=== PATIENT | female | born 1945 | race African-American/Black ===

== ENCOUNTER 2017-12-06 08:18 | Inpatient (IN) | payer OTHER ==
[2017-12-06] VITALS (8 sets, daily range): BP systolic 79–212; BP diastolic 37–92
[~2017-12-06] VITALS: Ht 172.7 cm; Wt 135.0 kg
--- NOTE | 2017-12-06 08:33 | NUR ---
PT FAMILY AT THE BEDSIDE BRIEFLY PRIOR TO DR. STEPHENS INTUBATING PT.
[2017-12-06] MEDS ORDERED: TRAMADOL 50 MG50 MG PO (08:34)
[2017-12-06] MEDS ORDERED: DEMADEX20 MG PO (08:34)
[2017-12-06] MEDS ORDERED: NORVASC5 MG PO (08:34)
[2017-12-06] MEDS ORDERED: LOTENSIN20 MG PO (08:35)
[2017-12-06] MEDS ORDERED: SINGULAIR 10 MG10 M1 PO (08:35)
[2017-12-06] MEDS ORDERED: ZANAFLEX4 MG PO (08:36)
[2017-12-06] MEDS ORDERED: LEVOTHYROXINE100 MC1 PO (08:37)
[2017-12-06 08:41] LABS: ABSOLUTE EOSINOPHILS 0.1 thou/uL (0.0-0.7); ABSOLUTE LYMPHOCYTES 1.6 thou/uL (0.8-5.3); ABSOLUTE NEUTROPHILS 10.5 thou/uL (1.6-8.1); BASOPHILS 0.3 %; EOSINOPHILS 0.9 %; HEMATOCRIT 39.2 % (37.0-47.0); HEMOGLOBIN 12.6 gm/dL (12.0-15.0); LYMPHOCYTES 12.3 %; MCHC 32.1 g/dL (28.0-37.0); MONOCYTES 7.7 %; MPV 10.2 fl. (7.2-11.1); NUCLEATED RBCS 0 /100WBC; PLATELET COUNT* 145 thou/uL (150-400); POLYS 78.8 %; RBC 4.84 mil/uL (4.20-5.00); RDW-CV 18.8 % (10.5-14.5); WBC 13.4 thou/uL (4.0-11.0)
[2017-12-06 08:45] LABS: BE -3.8 mmol/L (-2 to +3); HCO3 22.8 mmol/L (22.0-26.0); PCO2 47.1 mmHg (35.0-45.0); PO2 74.2 mmHg (75.0-100.0); pH 7.302 (7.340-7.450)
[2017-12-06 08:54] LABS: ANION GAP 11 mmol/L (7-16); BUN 26 mg/dL (7-18); CALCIUM 9.6 mg/dL (8.5-10.1); CHLORIDE 101 mmol/L (98-107); CO2 27 mmol/L (21-32); CREATININE 1.7 mg/dL (0.6-1.3); GLUCOSE 140 mg/dL (70-99); POTASSIUM 4.3 mmol/L (3.5-5.1); SODIUM 139 mmol/L (136-145)
[2017-12-06 08:55] LABS: APTT 28.5 Seconds (25.0-31.3); INR 1.2; PROTIME 11.2 Seconds (9.20-11.50)
[2017-12-06 09:04] LABS: ALBUMIN 3.9 g/dL (3.4-5.0); ALKALINE PHOSPHATASE 124 U/L (46-116); NT-PRO BRAIN NAT PEPTIDE 3824 pg/mL (<300); SGOT 32 U/L (15-37); SGPT 35 U/L (30-65); TOTAL PROTEIN 8.7 g/dL (6.4-8.2); TROPONIN-I LEVEL <0.06 ng/mL (<0.06)
[2017-12-06 10:27] LABS: INFLUENZA A ANTIGEN None Detected (None Detect); INFLUENZA B ANTIGEN None Detected (None Detect)
--- NOTE | 2017-12-06 10:35 | NUR ---
FAMILY GIVEN UPDATE BY DR. STEPHENS. FAMILY AT BEDSIDE.
--- NOTE | 2017-12-06 14:46 | EKG ---
[place] [address] ELECTROCARDIOGRAM REPORT Name: LUIS M CORRIGANLANDON Jorge Room: [address] ADM IN .R.#: [id number] Admission: 12/06/17 Attend Phys: Isabel Garcias MD Discharge: Date of : 49 Report #: [id number] THIS REPORT FOR: //name// [facility] ED Test Date: 2017-12-06 Test Time: 08:26:41 Pat Name: EVELINE CORRIGAN Department: Room: [facility] Gender: F Float Remover: Enio TIMMONS : 1945 Requested By: Rafat Riley Order Number: [id number] MD: Bakari Chaidez Measurements Intervals [place] Rate: 163 P: FL: QRS: 42 QRSD: 82 T: 145 QT: 257 QTc: 424 Interpretive Statements Atrial fibrillation with rapid V-rate Low voltage, precordial leads Abnormal R-wave progression, late transition Repolarization abnormality, prob rate related No previous ECG available for comparison Electronically Signed On 12-06-2017 14:46:45 CDT by Bakari Chaidez [email or web address] <ELECTRONICALLY SIGNED> By: Bakari Chaidez MD, FACC 12/06/17 1446 0826 0826 Bakari Chaidez MD, [facility] /EPI
--- NOTE | 2017-12-06 14:48 | EKG ---
[place] [address] ELECTROCARDIOGRAM REPORT Name: EVELINE CORRIGAN Room: [address] ADM IN M.R.#: [id number] Admission: 12/06/17 Attend Phys: Isabel Garcias MD Discharge: Date of : 49 Report #: [id number] THIS REPORT FOR: //name// [facility] ED Test Date: 2017-12-06 Test Time: 09:32:33 Pat Name: EVELINE CORRIGAN Department: Room: [address] Gender: F Care Management Associate: Enio TIMMONS : 1945 Requested By: Isabel Garcias Order Number: [id number] Susi MD: Bakari Chaidez Measurements Intervals [place] Rate: 121 P: [place]: QRS: 28 QRSD: 77 T: 94 QT: 311 QTc: 442 Interpretive Statements Atrial fibrillation Anteroseptal infarct, age indeterminate, possible Baseline wander in lead(s) V3 No previous ECG available for comparison Electronically Signed On 12-06-2017 14:48:11 CDT by Bakari Chaidez [email or web address] <ELECTRONICALLY SIGNED> By: Bakari Chaidez MD, [facility] 12/06/17 1448 0932 0932 Bakari Chaidez MD, [facility] /EPI
[2017-12-07] VITALS (23 sets, daily range): BP systolic 75–131; BP diastolic 23–75
[2017-12-07 05:27] LABS: HEMATOCRIT 34.7 % (37.0-47.0); HEMOGLOBIN 11.1 gm/dL (12.0-15.0); MCH 26.6 pg (26.0-34.0); MCHC 31.9 g/dL (28.0-37.0); MCV 83.3 fL (80.0-100.0); MPV 10.5 fl. (7.2-11.1); RBC 4.16 mil/uL (4.20-5.00); RDW-CV 18.7 % (10.5-14.5); WBC 10.6 thou/uL (4.0-11.0)
[2017-12-07 05:35] LABS: CALCIUM 8.4 mg/dL (8.5-10.1); CREATININE 1.4 mg/dL (0.6-1.3); POTASSIUM 4.1 mmol/L (3.5-5.1)
--- NOTE | 2017-12-07 06:30 | NUR ---
PATIENT PROGRESSING TOWARDS GOALS. RR, O2, BP WNL. IN CONTROLLED ATRIAL FLUTTER. VERSED GTT TITRATING DOWN. RESPONSIVE TO PAIN. SPOKE WITH FAMILY LAST NIGHT AND THIS MORNING. THEY ARE UP TO DATE ON CURRENT CARE OF PLAN NO FURTHER VOICED QUESTIONS. PT RECIEVED FULL BED BATH WITH LINEN CHANGE, TOLERATED WELL. SECRETIONS ARE DARK, THICK, MODERATE SIZE. Q2H ORAL CARE GIVEN. Q2H TURNS, HOB 30%. PT HAD A LOW GRADE FEVER OVER NIGHT. CURRENTLY 98.7. NO ABNORMAL LABS THIS A.M. URINE OUTPUT ADEQUATE. CHEST XRAY SHOWS IMPROVEMENT. WILL CONTINUE TO MONITOR CLOSELY.
[2017-12-07 08:41] LABS: ALBUMIN 3.1 g/dL (3.4-5.0); DIRECT BILIRUBIN 0.8 mg/dL (<0.1-0.3); TOTAL BILIRUBIN 1.7 mg/dL (<0.1-1.0); TOTAL PROTEIN 6.9 g/dL (6.4-8.2)
--- NOTE | 2017-12-07 11:00 | NUR ---
PT ADMITTED YESTERDAY, INTUBATED IN E.D. AND REMAINS ON VENT TODAY. SPOKE WITH DTR AT BEDSIDE. PT LIVES AT HOME WITH HER , PT'S GRANDSON ALSO LIVES THERE. PT NORMALLY IS FAIRLY ACTIVE AND INDEP PER DTR. PT HAS ASTHMA AND HAS HAD PNEUMONIA IN THE PAST, DTR SAID PT USUALLY WEARS A MASK WHEN SHE IS OUT IN PUBLIC. DISCUSSED ROLE OF CASE MGT. DTR HAS NO QUESTIONS ABOUT PLAN OF CARE, SHE SAID THE NURSES HAVE DONE AN VERY GOOD JOB OF KEEPING THEM INFORMED ON WHAT IS GOING ON.
--- NOTE | 2017-12-07 11:15 | CON ---
[address] [address] CONSULTATION Name: EVELINE CORRIGAN Jorge Room: [address] IN M.R.#: [id number] Admission: 12/06/17 Attend Phys: Isabel Garcias MD Discharge: Date of : 49 Report #: [id number] THIS REPORT FOR: //name// CC: Isabel James DATE OF SERVICE: 12/06/2017 REFERRING PHYSICIAN: Dr. Riley from the ER. HISTORY OF PRESENT ILLNESS: I was called to evaluate the patient in the ER, she is a 72-year-old female patient who was intubated on the vent at the time of my evaluation. She did not participate in the history, but reviewing medical record indicated that she has history of COPD and previous pneumonia. Reviewing the record indicated that she was short of breath for 2 days' duration and when the EMS arrived, she had her CPAP on her, but she was gasping for air and her O2 saturation was 68% and per the family, she had been short of breath for 2 days. She was brought into the ER and arrived on BiPAP. She was in significant respiratory distress and she ended up being intubated. Initially, they have difficulty ventilating the patient and required significant amount of sedation. Her PEEP initially was increased to 10, then sedation was increased and once she is more calm and quiet, her O2 saturation improved. HOME MEDICATIONS: Per the record. She is on torsemide, amlodipine, tramadol, benazepril, montelukast, Zanaflex and levothyroxine. ALLERGIES: Per the record, no known drug allergies. FAMILY HISTORY: Not obtainable due to the patient's condition. SOCIAL HISTORY: Unobtainable due to the patient's condition. However, there is a mention of history of COPD/asthma. PAST SURGICAL HISTORY: At this point, not obtainable. PAST MEDICAL HISTORY: Includes hypertension, hyperlipidemia, pneumonia, COPD/asthma. PHYSICAL EXAMINATION: VITAL SIGNS: She was on the vent, O2 saturation 100%, blood pressure around 96/53, pulse rate of 100. GENERAL: Obese lady, intubated on sedation. HEENT: Normocephalic, atraumatic. Pupils reactive to light. NECK: Supple. No palpable lymph node. No palpable thyroid. Trachea central. ORAL CAVITY: Moist mucous membrane with ET tube in place. CHEST: Diminished air movement bilaterally with prolonged [place] [address] CONSULTATION Name: EVELINE CORRIGAN Room: [address]#: [id number] Admission: 12/06/17 Attend Phys: Isabel Garcias MD Discharge: Date of : 49 Report #: [id number] crackles heard bilaterally with wheezes. HEART: S1, S2 irregular. ABDOMEN: Benign, soft, lax, nontender, obese. EXTREMITIES: Lower extremity, trace edema, no calf tenderness. Currently sedated, although it has been reported she had been moving the 4 extremities. PSYCHIATRIC: Mood and affect could not be evaluated. LYMPHATICS: No palpable lymph node. SKIN: Normal for age. No rash. LABORATORY DATA: Her chest x-ray in the ER showed bilateral consolidative infiltrate with cardiomegaly and vascular congestion. Her white blood count was elevated at 13.4, hemoglobin 12.6 and platelets of 145. ABGs prior to intubation 7.30/47/74, creatinine of 1.7, potassium 4.3, sodium 139. BNP was significantly elevated. IMPRESSION: 1. Acute hypoxic and hypercapnic respiratory failure. 2. Obstructive sleep apnea. 3. Pneumonia. 4. Bilateral pulmonary infiltrate. 5. Chronic obstructive pulmonary disease exacerbation. PLAN: The patient will be maintained on the vent. We will adjust the vent according to ABGs. We will do follow up ABGs and chest x-ray. It was noted she had some asynchrony with the vent with abdominal breathing. She would require more sedation. Consider benzodiazepine and fentanyl drip. She will be on steroids and antibiotics. Collect sputum for culture and sensitivity. She will be on scheduled nebulization treatments. We will wean her oxygen down. Once her chest x-ray clinically, she is better, then we will start the vent weaning process. Critical care time 35 minutes. <ELECTRONICALLY SIGNED> By: Deng Trivedi MD 12/07/17 1115 1144 [id number] Trivedi MD /nt
[2017-12-07 11:23] LABS: BE -1.3 mmol/L (-2 to +3); HCO3 24.2 mmol/L (22.0-26.0); PCO2 43.9 mmHg (35.0-45.0)
--- NOTE | 2017-12-07 13:10 | NUR ---
Pt blood pressure declined, levophed obtained from RX started at 10mcg. Page out to Dr. Trivedi, covering.
--- NOTE | 2017-12-07 13:41 | 2DMMODE ---
[place] [address] 2 D/M-MODE ECHOCARDIOGRAM Name: LUIS M CORRIGANLANDON Patel Room: [address] IN [facility]#: [id number] Admission: 12/06/17 Attend Phys: Isabel Garcias, Discharge: Date of : 49 Date of Service: 12/07/17 1340 Report #: [id number] THIS REPORT FOR: //name// APPROVED REPORT Study performed: 12/07/2017 10:30:19 EXAM: Comprehensive 2D, Doppler, and color-flow Echocardiogram Patient Location: In-Patient Room #: [facility] Status: routine BSA: 2.41 HR: 118 bpm BP: 104/65 mmHg Rhythm: Atrial Fibrillation Other Information Technically limited study due to body habitus, poor endocardial definition, inability to position patient. Indications Atrial Fibrillation PNEUMONIA RESP FAILURE 2D Dimensions LVEF(%): 61.88 (>50%) IVSd: 10.91 (7-11mm) LVOT Diam: 18.76 (18-24mm) LVDd: 29.18 mm PWd: 10.20 (7-11mm) Ascending Ao: 33.95 (22-36mm) LVDs: 19.84 (25-40mm) Aortic Root: 38.10 mm Burden's LVEF: 61.88 % Volumes Left Atrial Volume (Systole) LA ESV Index: 32.00 mL/m2 Aortic Valve AoV Peak Matthias.: 1.63 m/s AO Peak Gr.: 10.62 mmHg LVOT Max P.57 mmHg AO Mean Gr.: 6.46 mmHg LVOT Mean P.45 mmHg LVOT Max V: 0.80 m/s AO V2 VTI: 26.80 cm LVOT Mean V: 0.56 m/s VIOLET (VTI): 1.28 cm2 LVOT V1 VTI: 12.44 [place] [address] 2 D/M-MODE ECHOCARDIOGRAM Name: EVELINE CORRIGAN Jorge Room: [address] IN [facility].#: [id number] Admission: 12/06/17 Attend Phys: Isabel Garcias, Discharge: Date of : 49 Date of Service: 12/07/17 1340 Report #: [id number] AI Merrick: 6.62 m/s2 AI PHT: 104.56 ms Mitral Valve MV Mean Gr.: 11.89 mmHg Pulmonary Valve PV Peak Matthias.: 1.03 m/s PV Peak Gr.: 4.28 mmHg Tricuspid Valve TR Peak Gr.: 36.95 mmHg RVSP: 42.00 mmHg Left Ventricle The left ventricle is normal size. There is normal LV segmental wall motion. There is normal left ventricular wall thickness. Left ventricular systolic function is normal. The left ventricular ejection fraction is within the normal range. LVEF is 55-60%. This study is not technically sufficient to allow evaluation of the LV diastolic function due to atrial fibrillation. Right Ventricle The right ventricle is normal size. The right ventricular systolic function is normal. Atria The left atrium size is normal. The right atrium size is normal. Aortic Valve Mild aortic valve sclerosis. Mild aortic regurgitation. There is no aortic valvular stenosis. Mitral Valve Mild mitral annular calcification. Mild mitral regurgitation. Mild mitral stenosis. Tricuspid Valve The tricuspid valve is normal in structure. Mild tricuspid regurgitation. The RVSP is 40-45 mmHg. Pulmonic Valve The pulmonary valve is normal in structure. There is no pulmonic valvular regurgitation. Great Vessels The aortic root is normal in size. IVC is normal [place] [address] 2 D/M-MODE ECHOCARDIOGRAM Name: EVELINE CORRIGAN Room: [address] IN [facility]#: [id number] Admission: 12/06/17 Attend Phys: Isabel Garcias, Discharge: Date of : 49 Date of Service: 12/07/17 1340 Report #: [id number] collapses with >50% inspiration Pericardium There is no pericardial effusion. <Conclusion> The left ventricle is normal size. There is normal left ventricular wall thickness. Left ventricular systolic function is normal. The left ventricular ejection fraction is within the normal range. LVEF is 55-60%. This study is not technically sufficient to allow evaluation of the LV diastolic function due to atrial fibrillation. The right ventricle is normal size. The left atrium size is normal. Mild aortic valve sclerosis. Mild aortic regurgitation. There is no aortic valvular stenosis. Mild mitral annular calcification. Mild mitral regurgitation. Mild mitral stenosis. The tricuspid valve is normal in structure. Mild tricuspid regurgitation. The RVSP is 40-45 mmHg. IVC is normal in size and collapses with >50% inspiration There is no pericardial effusion. There is normal LV segmental wall motion. <ELECTRONICALLY SIGNED> By: Kirk Roldan MD, FACC 12/07/17 1340 1340 1340 Kirk Roldan MD, FACC /INF
--- NOTE | 2017-12-07 19:00 | NUR ---
PATIENT HAS SOMEWHAT PROGRESSED WELL TOWARDS GOALS TODAY. REMAINS ON VENT, WEANING TRIAL TOMORROW. NO APAPRENT PAIN. HAD TO START LEVO TODAY, INCREASED SEDATION TO HELP KEEP PATIENT COMFORTABLE ON THE VENT AND PRESSORS STARTED TO DROP. FAMILY UPDATED AND HAS BEEN IN THE ROOM MOST OF THE DAY. CENTTRAL LINE VERY POSITIONAL. LOTS OF SEDIMENT IN URINE. ABLE TO TITRATE SOME ON PRESSORS BUT UNABLE TO WEAN. ROLLING ATTENDANT IN PLACE, FALL PRECAUTIONS IN PLACE, BED IN LOWEST POSITION, WILL CONTINUE TO MONITOR.
[2017-12-08] VITALS (19 sets, daily range): BP systolic 100–136; BP diastolic 54–73
[2017-12-08 05:42] LABS: HEMATOCRIT 26.6 % (37.0-47.0); HEMOGLOBIN 10.9 gm/dL (12.0-15.0); MCH 45.5 pg (26.0-34.0); MPV 11.1 fl. (7.2-11.1); RBC 2.4 mil/uL (4.20-5.00); RDW-CV 21.4 % (10.5-14.5); WBC 11.5 thou/uL (4.0-11.0)
[2017-12-08 05:57] LABS: ALBUMIN 2.9 g/dL (3.4-5.0); CALCIUM 8.8 mg/dL (8.5-10.1); CREATININE 1.5 mg/dL (0.6-1.3); POTASSIUM 3.8 mmol/L (3.5-5.1); TOTAL PROTEIN 7.3 g/dL (6.4-8.2)
[2017-12-08 14:42] LABS: URINE BILIRUBIN NEGATIVE (Negative); URINE BLOOD 2+ (Negative); URINE CLARITY CLEAR; URINE COLOR YELLOW; URINE GLUCOSE-RANDOM NEGATIVE (Negative); URINE KETONES NEGATIVE (Negative); URINE LEUKOCYTES-REFLEX NEGATIVE (Negative); URINE NITRITE-REFLEX NEGATIVE (Negative); URINE PROTEIN 2+ (Negative); URINE SPECIFIC GRAVITY 1.025 (1.005-1.030); URINE UROBILINOGEN 0.2 E.U./dl (0.2-1.0)
[2017-12-08 14:44] LABS: SQUAMOUS 0-3 Few /LPF (0-3)
[2017-12-08 14:45] LABS: BACTERIA-REFLEX None Seen /HPF (None Seen); CASTS None Seen /LPF (None Seen); CRYSTALS None Seen /LPF (None Seen); URINE RBC 3-10 Few /HPF (0-2); URINE WBC-REFLEX None Seen /HPF (0-5)
--- NOTE | 2017-12-08 15:21 | EKG ---
[place] [address] ELECTROCARDIOGRAM REPORT Name: EVELINE CORRIGAN Room: [address] ADM IN M.R.#: [id number] Admission: 12/06/17 Attend Phys: Isabel Garcias MD Discharge: Date of : 49 Report #: [id number] THIS REPORT FOR: //name// [facility] Test Date: 2017-12-08 Test Time: 05:48:04 Pat Name: EVELINE CORRIGAN Department: Room: [address] Gender: F Tooth Polisher: RN : 1945 Requested By: Isabel Garcias Order Number: [id number] Reading MD: Kirk Roldan Measurements Intervals [place] Rate: 126 P: [place]: QRS: 39 QRSD: 95 T: 77 QT: 329 QTc: 477 Interpretive Statements Atrial fibrillation Borderline low voltage, extremity leads Compared to ECG 12/06/2017 09:32:33 Myocardial infarct finding no longer present Electronically Signed On 12-08-2017 15:21:42 CDT by Kirk Roldan [email or web address] <ELECTRONICALLY SIGNED> By: Kirk Roldan MD, [facility] 12/08/17 1521 0548 0548 Kirk Roldan MD, FAC /EPI
--- NOTE | 2017-12-08 15:37 | NUR ---
SEDATION VACATION INITIATED PER ORDERS FROM PULMONARY. PT TOLERATING. TRACING AFIB WITH HR 110-120. DILTIAZEM ORDERED FOR WHEN PT GOES INTO AFIB WITH RVR. HR <115. CARDIOLOGY NOTIFIED PT NOT ON GTT. LEVO TITRATED TO 4 MCG. WILL CONTINUE PLAN OF CARE.
--- NOTE | 2017-12-08 18:55 | NUR ---
PT TOLERATED SEDATION VACATION. PT BECAME RESTLESS. DID NOT OPEN EYES OR OBEY COMMANDS. HR STAYED IN LOW 100'S. CARDIZEM STARTED PER DR'S ORDERS.
[2017-12-09] VITALS (24 sets, daily range): BP systolic 86–116; BP diastolic 29–66
[2017-12-09 05:18] LABS: ALBUMIN 2.7 g/dL (3.4-5.0); CREATININE 1.3 mg/dL (0.6-1.3); MAGNESIUM 2.8 mg/dL (1.8-2.4); POTASSIUM 4.5 mmol/L (3.5-5.1); TOTAL BILIRUBIN 0.9 mg/dL (<0.1-1.0); TOTAL PROTEIN 6.3 g/dL (6.4-8.2)
--- NOTE | 2017-12-09 06:29 | NUR ---
PT REMAINS STABLE ON VENTILATOR, O2 SAT HAS REMAINED >95%. CARDIZEM GTT INFUSING ORDERED, HR HAS BEEN CONTROLLED 80'S-100'S. FENTANYL AND VERSED GTT'S TITRATED OFF AT 0600 IN PREPARATION FOR WEANING TRIAL AT 0800. PT TOLERATES TUBE FEEDING AT GOAL RATE OF 40ML/HR WITH 0-5ML RESIDUALS, WATER BOLUS 100ML Q4HR GIVEN ORDERED. COMPLETE BED BATH GIVEN. PT HAS BEEN TURNED Q2HR THROUGHOUT THE SHIFT.
[2017-12-09 09:33] LABS: HEMOGLOBIN 10.8 gm/dL (12.0-15.0); MPV 10.6 fl. (7.2-11.1); RDW-CV 41.7 % (10.5-14.5)
[2017-12-09 09:35] LABS: BE -1.4 mmol/L (-2 to +3); HCO3 23.7 mmol/L (22.0-26.0); PCO2 40.9 mmHg (35.0-45.0); PO2 92.3 mmHg (75.0-100.0)
[2017-12-09 09:40] LABS: HEMATOCRIT ND % (37.0-47.0); RBC ND mil/uL (4.20-5.00)
[2017-12-09 09:41] LABS: MCV ND fL (80.0-100.0)
[2017-12-09 09:43] LABS: MCH ND pg (26.0-34.0)
[2017-12-09 09:44] LABS: MCHC ND g/dL (28.0-37.0)
[2017-12-09 10:03] LABS: PLATELET COUNT* 117 thou/uL (150-400)
--- NOTE | 2017-12-09 11:00 | NUR ---
PT REMAINS ON VENT, ANOTHER WEANING TRIAL FOR TOMORROW. SPOKE WITH DTRS AT THE BEDSIDE, THEY HAD NO QUESTIONS ABOUT PLAN OF CARE. CASE MGT TO CONTINUE TO FOLLOW.
--- NOTE | 2017-12-09 19:30 | NUR ---
PT IS PROGRESSING TOWARDS GOALS. PT REMAINS OFF LEVOPHED AND VERSED GTTS.PT STARTED ON PO CARDIZEM THROUGH O/G. PT REMANS IN A FIB.FAMILY HAS BEEN HERE THROUGH SHIFT. PT TURNED THROUGH SHIFT.
[2017-12-10] VITALS (15 sets, daily range): BP systolic 11–129; BP diastolic 50–78
[2017-12-10 04:41] LABS: CALCIUM 9.5 mg/dL (8.5-10.1); CREATININE 1.5 mg/dL (0.6-1.3); POTASSIUM 4.3 mmol/L (3.5-5.1)
[2017-12-10 05:16] LABS: INR 1.2
[2017-12-10 06:11] LABS: WBC 31.7 thou/uL (4.0-11.0)
[2017-12-10 06:12] LABS: HEMATOCRIT ND % (37.0-47.0); HEMOGLOBIN 10.6 gm/dL (12.0-15.0)
[2017-12-10 06:13] LABS: MCH ND pg (26.0-34.0); MCHC ND g/dL (28.0-37.0); MCV ND fL (80.0-100.0); MPV ND fl. (7.2-11.1); PLATELET COUNT* 141 thou/uL (150-400); RDW-CV ND % (10.5-14.5)
[2017-12-10 06:14] LABS: RBC ND mil/uL (4.20-5.00)
--- NOTE | 2017-12-10 06:28 | NUR ---
PT REMAINS STABLE ON VENTILATOR. FENTANYL GTT TITRATED OFF AT 0600 IN PREPARATION FOR WEANING TRIAL SCHEDULED AT 0800. COLD ROLL INSPECTOR TRACING A-FIB WITH CONTROLLED RATE. VSS. O2 SAT HAS REMAINED >92%. COMPLETE BED BATH GIVEN. PT TOLERATING TF WITH 0ML RESIDUALS. PT HAS BEEN TURNED Q2HR THROUGHOUT THE SHIFT. DAUGHTER AT BEDSIDE LAST NOC, STATED SHE WOULD BE IN AT 0800 TO BRING PTS HOME CPAP MACHINE.
--- NOTE | 2017-12-10 18:13 | NUR ---
RECIEVED REPORT FROM NIGHT, RN. ASSESSMENTS CHARTED. STILL INTUBATED. OFF SEDATION SINCE 0600. UNABLE TO DO A TTT TODAY. AFEBRILE. BLOODY SECRETIONS NOTED TODAY AND PHYSICAN AWARE. AFIB. [place]DEQAUTE URINE OUTPUT. TUBE FEEDINGS INFUSING. LOVENOX D/C'D. HEPARIN GTT STARTED PER CARDILOGY. FAMILY UPDATED ON PLAN OF CARE.
[2017-12-11] VITALS (7 sets, daily range): BP systolic 116–136; BP diastolic 61–82
--- NOTE | 2017-12-11 04:53 | NUR ---
PT. SOMEWHAT PROGRESSING TOWARDS GOALS. PRN SEDATION OF FENTANYL GIVEN FOR RESTLESSNESS AND TACHYCARDIA. FENTANYL GTT REMAINS OFF. PT. DOES OPEN EYES TO STIMULI BUT DID NOT FOLLOW COMMANDS THIS SHIFT. TTT THIS A.M. ADEQUATE BLOOD PRESSURES THROUGHOUT SHIFT. LARGE BOWEL MOVEMENT. WILL CONTINUE TO MONITOR.
[2017-12-11 05:24] LABS: CALCIUM 9.1 mg/dL (8.5-10.1); CREATININE 1.7 mg/dL (0.6-1.3); MAGNESIUM 2.8 mg/dL (1.8-2.4); POTASSIUM 3.6 mmol/L (3.5-5.1)
[2017-12-11 05:48] LABS: HEMOGLOBIN 10.2 gm/dL (12.0-15.0); MPV 10.1 fl. (7.2-11.1); PLATELET COUNT* 118 thou/uL (150-400); RDW-CV 55.4 % (10.5-14.5)
[2017-12-11 05:50] LABS: WBC 7.4 thou/uL (4.0-11.0)
[2017-12-11 05:51] LABS: MCH ND pg (26.0-34.0)
[2017-12-11 05:52] LABS: MCHC ND g/dL (28.0-37.0); MCV ND fL (80.0-100.0)
[2017-12-11 05:55] LABS: RBC ND mil/uL (4.20-5.00)
[2017-12-11 05:56] LABS: HEMATOCRIT ND % (37.0-47.0)
--- NOTE | 2017-12-11 10:14 | NUR ---
DR DANIELSON REQUEST PT BE TRANSFER TO [facility] OR ACCEPTING FACILITY WITH NEUROSURGERY AVAILABLE. CALLED RADIOLOGY TO HAVE IMAGES PUT ON CLOUD. SPOKE TO [facility] TRANSFER CENTER. FACESHEET,INSURANCE INFO AND TRANSFER PAPERWORK FAXED. WILL AWAIT ACCEPTANCE
--- NOTE | 2017-12-11 10:33 | NUR ---
[facility] IS OUT OF NETWORK FOR [facility]. [facility] [place]ES[place] [facility] WILL NOT ACCEPT [facility]. WILL ASK DR DANIELSON AND DR JIN FOR PREFERENCE ON OTHER FACILITIES
--- NOTE | 2017-12-11 10:46 | NUR ---
RECEIVED REPORT FROM DOUGIE MUNOZ. ASSESSMENT CHARTED. AFEBRILE. PT STILL HAD BLOODY SECRETIONS BUT SOMEHWAT IMPROVED PER NIGHT RN. NURSE GAVE PRN FENTANYL DURING NIGHT. PT STILL NOT RESPONDING TO COMMANDS. SPOKE WITH MANAGER MSW AND STAT CT OF THE HEAD ORDERED.
--- NOTE | 2017-12-11 10:51 | NUR ---
CT OF HEAD REVEALED LARGE AREA OF SWELLING AND BLEEDING. PHYSICANS AWARE AND PLANS TO TRANSFER TO A HIGHER LEVEL OF CARE. HEPARIN DRIP D/C'D. PROTAMINE INFUSING. FAMILY AWARE AND WILL CONTINUE TO MONITOR.
--- NOTE | 2017-12-11 11:13 | NUR ---
SPOKE TO [facility]. THEY WOULD LIKE TO SPEAK TO DR DANIELSON PRIOR TO HAVING PAPERWORK FAXED. DR DANIELSON NOTIFIED.
--- NOTE | 2017-12-11 11:35 | NUR ---
CALLED TRANSFER CENTER TO [facility]. ROOM ASSIGNMENT GIVEN TO DR DANIELSON BUT NO INFORMATION YET FAXED. TRANSFER CENTER CONFIRMED ROOM ASSIGNMENT. FACE SHEET AND MED LIST SENT TO . REPORT CALLED BY WILLY IVAN AT . TRANSPORT FORM FAXED.
--- NOTE | 2017-12-11 11:51 | NUR ---
REPORT GIVEN TO DOUGIE LINDA AT [facility]. ALL QUESTIONS ANSWERED. [id number] WILL CALL WHEN TRANSPORTER ARRIVES.
--- NOTE | 2017-12-11 13:21 | NUR ---
[facility] PICKED PT UP AT 1315 TO TRANSFER TO . ALL QUESTIONS ANSWERED. NO CHANGE IN STATUS. FAMILY PRESENT FOR DISCHARGE.
--- NOTE | 2017-12-11 21:54 | CON ---
[address] [address] CONSULTATION Name: EVELINE CORRIGAN Room: [address] IN M.R.#: [id number] Admission: 12/06/17 Attend Phys: Isabel Garcias MD Discharge: 12/11/17 Date of : 49 Report #: [id number] THIS REPORT FOR: //name// CC: Isabel Villegas [facility] DATE OF SERVICE: 12/07/2017 INFECTIOUS DISEASE CONSULTATION ATTENDING PHYSICIAN: Dr. Garcias. REASON FOR EVALUATION: Severe pneumonitis, complicated by respiratory failure. HISTORY OF PRESENT ILLNESS: Chart reviewed, patient examined. A 72-year-old with history of COPD, who has per family and per available records had developed fairly acute onset of dyspnea. This has occurred over the course of the last couple of days. It is notable she has CPAP at home, was evaluated and was found to have low saturations in the 60s. She was transitioned to the Emergency Room where she was resuscitated, ultimately needed intubation, now on mechanical ventilatory support. She was found to be hypoxemic. Chest x-ray evidence of extensive bilateral consolidating infiltrates were noted with cardiomegaly. Influenza antigen was negative. She has had some low grade temperature elevations up to 100.8. Sputum cultures pending. Blood cultures collected yesterday are sterile thus far. Empirically placed on ceftriaxone, vancomycin, piperacillin and tazobactam. ALLERGIES: None known. MEDICATIONS: Include fentanyl, ceftriaxone, levothyroxine, vancomycin, enoxaparin, ipratropium and albuterol inhaler, pantoprazole, methylprednisolone, metoprolol, Zosyn. PAST MEDICAL HISTORY: As noted, COPD, history of hypertension, hypothyroidism, does have recent history of pneumonia, perhaps a year ago. SOCIAL HISTORY: No significant recent use. FAMILY HISTORY: Noncontributory. REVIEW OF SYSTEMS: Unobtainable. PHYSICAL EXAMINATION: GENERAL: She is intubated, supine. She is sedated at this point, in mild to moderate distress. VITAL SIGNS: Temperature 98.6, pulse 120, respirations 20, [place] [address] CONSULTATION Name: EVELINE CORRIGAN Room: [address]#: [id number] Admission: 12/06/17 Attend Phys: Isabel Garcias MD Discharge: 12/11/17 Date of : 49 Report #: [id number] 112/63. SKIN: Warm, dry. NECK: Supple. LUNGS: Scattered coarse breath sounds. HEART: Regular, tachycardic. I do not appreciate a murmur. ABDOMEN: Obese, soft. There are no overt peritoneal signs. GENITOURINARY: Deferred. RECTAL: Deferred. LABORATORY DATA: Initial CBC: White count of 13.4, hemoglobin 12.6, hematocrit 39.2 and platelet count of 145. ABGs: pH 7.302, pCO2 of 47.1, pO2 of 74.2 and that was on 15 liters. Most recent ABG today, pH 7.360, pCO2 of 43.9, pO2 of 93 and that was on FiO2 of 35% assist control. Hepatic panel showed total bilirubin of 1.7. Transaminases were normal. Albumin of 3.1. Total protein 6.9. Blood cultures sterile thus far. Chest x-ray, atelectasis, pneumonia in the right middle lobe and lower lobe that persists, cardiomegaly. Electrolytes: Sodium 144, potassium 4.1, chloride 107, bicarbonate is 24, BUN and creatinine 25 and 1.4. CBC: White count of 10.6, H and H and 11.1 and 34.7, platelets of 117. ASSESSMENT: Severe pneumonitis, complicated by respiratory failure, appears to be bacterial in origin. Agree with empiric broad-spectrum antimicrobials. Continue supportive measures. Ideally pare down support as allowed over the course of the next 2-3 days. Discussed with the family. <ELECTRONICALLY SIGNED> By: Joey Guerrero MD 12/11/17 2154 1252 [email or web address] Guerrero MD /nt
--- NOTE | 2017-12-22 19:10 | CON ---
[address] [address] CONSULTATION Name: EVELINE CORRIGAN Jorge Room: [address] IN M.R.#: [id number] Admission: 12/06/17 Attend Phys: Isabel Garcias MD Discharge: 12/11/17 Date of : 49 Report #: [id number] THIS REPORT FOR: //name// CC: Isabel James DATE OF SERVICE: 12/11/2017 HISTORY OF PRESENT ILLNESS: This is a 72-year-old female patient who was evaluated by me today. I talked to Dr. Zaragoza and I talked to Dr. Tomas. I reviewed part of the records, but because of the urgency we are facing I have not reviewed all the records yet. This patient's neurological history is that she was admitted with shortness of breath. She was on sedation. She, as I understand, also has atrial fibrillation and for that she was on anticoagulation, first by Lovenox and recently by heparin. She was not waking up as expected and therefore a CT scan of the head was done. CT scan of the head demonstrated finding consistent with left intracerebral hemorrhage with edema surrounding it and the ventricles appeared to be compressed. The patient has been opening her eyes according to the family. They have not seen her moving the right upper extremity, she does move the left upper extremity. She does not follow commands. REVIEW OF SYSTEMS: Positive for what looks like atrial fibrillation, bilateral pneumonia and respiratory failure. The family denies any history of dementia. This was her relevant review of system. PAST MEDICAL HISTORY: According to the family is negative for any stroke. FAMILY HISTORY: Unremarkable. SOCIAL HISTORY: She has a family here and I did talk to them in great detail about her options. PHYSICAL EXAMINATION: Was limited because I really wanted this patient to be transferred soon, but I did carry out an examination. She opens her eyes. She does not follow any commands, so she may be aphasic. She did not move the right upper extremity or right lower extremity for me, but the family says that she can move the right lower extremity, but I did not see it, but the left upper and left lower extremity she does move. Her pupil may be slightly asymmetrical, but that is probably her baseline because I do not know what her baseline is, but not of the pupils has pupillary dilatation. She did not follow the commands to do the extraocular muscle examination. IMPRESSION: Intracerebral hemorrhage. I had a long talk with the patient . [place] [address] CONSULTATION Name: EVELINE CORRIGAN Room: [address] IN [facility].#: [id number] Admission: 12/06/17 Attend Phys: Isabel Garcias MD Discharge: 12/11/17 Date of : 49 Report #: [id number] scan where the hemorrhage is. I discussed with them that we do not manage intracerebral hemorrhage in this hospital and it is typically managed by Neurosurgery. They want to be aggressive with the treatment. So they wanted this patient to be transferred. I discussed with them all their options. We have already called [facility], but that is out of the network. Then, [facility], but [facility] does not have any beds according to the nurses. I have asked them to call [facility] and if that facility is also not available, then I think we have to talk to probably [facility] or [facility] where Neurosurgery is available, but if she can get into that will be good. I have talked to Dr. Tomas. This patient has already received protamine because her last PTT was 51.8. I have given my phone number to the nurses and asked them to call me when the neurosurgeons are available and I will be happy to talk to them to see if they want us to do anything like mannitol here or whether they just want to be transferred. The best will be to transfer this patient emergently to a higher level of care where Neurosurgery is available because neurosurgeons are the one who typically handle intracerebral hemorrhage and we do not do that here. Family understood it very well. <ELECTRONICALLY SIGNED> By: Jeevan Eisenberg MD 12/22/17 1910 1139 1706Jeevan Eisenberg MD /nt
== END 2017-12-11 13:13 | disposition short-term general hospital (02) | DRG 870 ==
LOC: M.ERS 08:18 → M.TBA-ER 09:42 → M.ICU 09:42
PROVIDERS: Family Medicine; Internal Medicine; ADMIT Internal Medicine
PROC: 0BH17EZ Insertion of Endotracheal Airway into Trachea, Via Natural or Artificial Opening (ICD-10-PCS; principal; 2017-12-06)
PROC: 02HV33Z Insertion of Infusion Device into Superior Vena Cava, Percutaneous Approach (ICD-10-PCS; principal; 2017-12-06)
PROC: 5A1955Z Respiratory Ventilation, Greater than 96 Consecutive Hours (ICD-10-PCS; principal; 2017-12-06)
DX: A41.9 Sepsis, unspecified organism (principal); R65.21 Severe sepsis with septic shock; J96.01 Acute respiratory failure with hypoxia; J18.9 Pneumonia, unspecified organism; I61.9 Nontraumatic intracerebral hemorrhage, unspecified; I50.33 Acute on chronic diastolic (congestive) heart failure; N17.0 Acute kidney failure with tubular necrosis; J96.02 Acute respiratory failure with hypercapnia; J45.901 Unspecified asthma with (acute) exacerbation; E87.0 Hyperosmolality and hypernatremia; R04.2 Hemoptysis; Z68.42 Body mass index [BMI] 45.0-49.9, adult; J44.0 Chronic obstructive pulmonary disease with (acute) lower respiratory infection; I13.0 Hypertensive heart and chronic kidney disease with heart failure and stage 1 through stage 4 chronic kidney disease, or unspecified chronic kidney disease; R65.10 Systemic inflammatory response syndrome (SIRS) of non-infectious origin without acute organ dysfunction; E78.5 Hyperlipidemia, unspecified; G47.33 Obstructive sleep apnea (adult) (pediatric); E03.9 Hypothyroidism, unspecified; I48.91 Unspecified atrial fibrillation; I95.9 Hypotension, unspecified; E66.01 Morbid (severe) obesity due to excess calories; I27.20 Pulmonary hypertension, unspecified; D69.6 Thrombocytopenia, unspecified; D64.9 Anemia, unspecified; N18.9 Chronic kidney disease, unspecified; Z79.01 Long term (current) use of anticoagulants; Z79.899 Other long term (current) drug therapy

== ENCOUNTER 2018-01-02 12:43 | Emergency (ER) | payer OTHER ==
[~2018-01-02] VITALS: Ht 180.3 cm; Wt 127.0 kg
[~2018-01-02 12:43] MED LIST: DEMADEX20 MG PO; LEVOTHYROXINE100 MC1 PO; LOTENSIN20 MG PO; NORVASC5 MG PO; SINGULAIR 10 MG10 M1 PO; TRAMADOL 50 MG50 MG PO; ZANAFLEX4 MG PO
[2018-01-02 14:09] LABS: ABSOLUTE EOSINOPHILS 0.2 thou/uL (0.0-0.7); ABSOLUTE LYMPHOCYTES 1.4 thou/uL (0.8-5.3); ABSOLUTE MONOCYTES 0.8 thou/uL (0.0-1.2); ABSOLUTE NEUTROPHILS 3.3 thou/uL (1.6-8.1); BASOPHILS 0.3 %; EOSINOPHILS 2.9 %; HEMATOCRIT 37.1 % (37.0-47.0); HEMOGLOBIN 11.8 gm/dL (12.0-15.0); LYMPHOCYTES 24.7 %; MCH 28.1 pg (26.0-34.0); MCHC 31.9 g/dL (28.0-37.0); MCV 88.1 fL (80.0-100.0); MONOCYTES 13.5 %; NUCLEATED RBCS 0 /100WBC; PLATELET COUNT* 202 thou/uL (150-400); POLYS 58.6 %; RBC 4.21 mil/uL (4.20-5.00); RDW-CV 20.6 % (10.5-14.5); WBC 5.7 thou/uL (4.0-11.0)
[2018-01-02 14:15] LABS: ANION GAP 8 mmol/L (7-16); BUN 17 mg/dL (7-18); CALCIUM 10.3 mg/dL (8.5-10.1); CHLORIDE 104 mmol/L (98-107); CO2 31 mmol/L (21-32); CREATININE 1.1 mg/dL (0.6-1.3); GLUCOSE 96 mg/dL (70-99); POTASSIUM 4.6 mmol/L (3.5-5.1); SODIUM 143 mmol/L (136-145)
[2018-01-02 14:23] LABS: ALKALINE PHOSPHATASE 103 U/L (46-116); LIPASE 238 U/L (73-393); SGOT 29 U/L (15-37); SGPT 69 U/L (30-65); TOTAL BILIRUBIN 1.1 mg/dL (<0.1-1.0); TOTAL PROTEIN 7.5 g/dL (6.4-8.2); TROPONIN-I LEVEL <0.06 ng/mL (<0.06)
--- NOTE | 2018-01-02 15:24 | EKG ---
[place] [address] ELECTROCARDIOGRAM REPORT Name: EVELINE CORRIGAN Room: [facility]#: [id number] Admission: 01/02/18 Attend Phys: Discharge: Date of : 49 Report #: [id number] THIS REPORT FOR: //name// [facility] ED Test Date: 2018-01-02 Test Time: 13:39:08 Pat Name: EVELINE CORRIGAN Department: Room: Gender: F Manager Floor: VICTORIA Steen : 1945 Requested By: Shandra Gorman Order Number: [id number] MD: Hammad Ivey Measurements Intervals [place] Rate: 114 P: VT: QRS: 35 QRSD: 108 T: 63 QT: 362 QTc: 499 Interpretive Statements Atrial fibrillation Low voltage, extremity and precordial leads RSR' in V1 or V2, right VCD or RVH Nonspecific T abnrm, anterolateral leads Borderline prolonged QT interval Electronically Signed On 01-02-2018 15:24:24 CDT by Hammad Ivey [email or web address] <ELECTRONICALLY SIGNED> By: Hammad Ivey MD, [facility] 01/02/18 1524 1339 1339 Hammad Ivey MD, [facility] /EPI
--- NOTE | 2018-01-02 15:24 | EKG ---
[place] [address] ELECTROCARDIOGRAM REPORT Name: EVELINE CORRIGAN Room: [facility]#: [id number] Admission: 01/02/18 Attend Phys: Discharge: Date of : 49 Report #: [id number] THIS REPORT FOR: //name// [facility] ED Test Date: 2018-01-02 Test Time: 13:38:28 Pat Name: EVELINE CORRIGAN Department: Room: Gender: F Case Assembler: VICTORIA Steen : 1945 Requested By: Shandra Gorman Order Number: [id number] MD: Hammad Ivey Measurements Intervals [place] Rate: 110 P: ND: QRS: 47 QRSD: 98 T: 78 QT: 343 QTc: 465 Interpretive Statements Atrial fibrillation Borderline low voltage, extremity leads Nonspecific T abnrm, anterolateral leads Borderline prolonged QT interval Baseline wander in lead(s) II,III,aVF,V2 Compared to ECG 12/08/2017 05:48:04 No significant changes Electronically Signed On 01-02-2018 15:23:45 CDT by Hammad Ivey [email or web address] <ELECTRONICALLY SIGNED> By: Hammad Ivey MD, [facility] 01/02/18 1523 1338 1338 Hammad Ivey MD, [facility] /EPI
[2018-01-02 15:38] LABS: URINE BILIRUBIN NEGATIVE (Negative); URINE BLOOD NEGATIVE (Negative); URINE CLARITY CLEAR; URINE COLOR YELLOW; URINE GLUCOSE-RANDOM NEGATIVE (Negative); URINE KETONES NEGATIVE (Negative); URINE LEUKOCYTES-REFLEX NEGATIVE (Negative); URINE NITRITE-REFLEX NEGATIVE (Negative); URINE PROTEIN TRACE (Negative); URINE SPECIFIC GRAVITY 1.015 (1.005-1.030)
[2018-01-02] MEDS ORDERED: LEVAQUIN 500 M500 M2 PO (16:26)
[2018-01-02 18:50] VITALS: BP 110/70
== END 2018-01-02 18:51 | disposition home or self-care (01) ==
LOC: M.ERS 12:43
PROVIDERS: Physician Assistant
DX: J18.9 Pneumonia, unspecified organism (principal); L89.151 Pressure ulcer of sacral region, stage 1; I10 Essential (primary) hypertension; E03.9 Hypothyroidism, unspecified; J44.9 Chronic obstructive pulmonary disease, unspecified; Z86.73 Personal history of transient ischemic attack (TIA), and cerebral infarction without residual deficits

== ENCOUNTER 2018-01-16 20:09 | Inpatient (IN) | payer OTHER ==
[~2018-01-16] VITALS: Ht 172.7 cm; Wt 119.7 kg
[~2018-01-16 20:09] MED LIST changes: +LEVAQUIN 500 M500 M2 PO
[2018-01-16 20:14] VITALS: BP 107/59
[2018-01-16] MEDS ORDERED: ASPIRIN81 M2 PO (20:29)
[2018-01-16] MEDS ORDERED: LIPITOR 20 MG T20 M1 PO (20:30)
[2018-01-16] MEDS ORDERED: PULMICORT0.5 MG/22 INH (20:31)
[2018-01-16] MEDS ORDERED: LIDOCARE1 EACH TRANSDERM (20:32)
[2018-01-16] MEDS ORDERED: LOPRESSOR (20:35)
[2018-01-16] MEDS ORDERED: SINGULAIR 10 MG10 M1 (20:36)
[2018-01-16] MEDS ORDERED: LOPRESSOR25 (20:39)
[2018-01-16 20:58] LABS: ABSOLUTE EOSINOPHILS 0.1 thou/uL (0.0-0.7); ABSOLUTE LYMPHOCYTES 1.6 thou/uL (0.8-5.3); ABSOLUTE MONOCYTES 1.3 thou/uL (0.0-1.2); ABSOLUTE NEUTROPHILS 11.5 thou/uL (1.6-8.1); BASOPHILS 0.3 %; EOSINOPHILS 0.5 %; HEMOGLOBIN 10.2 gm/dL (12.0-15.0); MCH 26.6 pg (26.0-34.0); MCHC 30.9 g/dL (28.0-37.0); MCV 85.9 fL (80.0-100.0); MONOCYTES 9.1 %; NUCLEATED RBCS 0 /100WBC; PLATELET COUNT* 260 thou/uL (150-400); POLYS 79.1 %; RBC 3.84 mil/uL (4.20-5.00); RDW-CV 20.8 % (10.5-14.5); WBC 14.5 thou/uL (4.0-11.0)
[2018-01-16 21:01] LABS: CALCIUM 9.8 mg/dL (8.5-10.1); CREATININE 1.1 mg/dL (0.6-1.3); POTASSIUM 3.9 mmol/L (3.5-5.1)
[2018-01-16 21:06] LABS: ALBUMIN 2.4 g/dL (3.4-5.0); TOTAL BILIRUBIN 1.5 mg/dL (<0.1-1.0); TOTAL PROTEIN 6.9 g/dL (6.4-8.2)
[2018-01-16 21:35] LABS: URINE BILIRUBIN NEGATIVE (Negative); URINE BLOOD NEGATIVE (Negative); URINE CLARITY CLEAR; URINE COLOR YELLOW; URINE GLUCOSE-RANDOM NEGATIVE (Negative); URINE KETONES NEGATIVE (Negative); URINE LEUKOCYTES-REFLEX NEGATIVE (Negative); URINE NITRITE-REFLEX NEGATIVE (Negative); URINE PROTEIN 1+ (Negative); URINE SPECIFIC GRAVITY >= 1.030 (1.005-1.030); URINE UROBILINOGEN 0.2 E.U./dl (0.2-1.0)
[2018-01-16 21:40] LABS: NT-PRO BRAIN NAT PEPTIDE 6767 pg/mL (<300); TROPONIN-I LEVEL <0.06 ng/mL (<0.06)
[2018-01-16 22:00] LABS: ANISOCYTOSIS 2+; POLYCHROMASIA 1+
[2018-01-16 22:01] LABS: LARGE PLATELETS OCCASIONAL; PLATELET ESTIMATE ADEQUATE
[2018-01-17] VITALS (7 sets, daily range): BP systolic 97–112; BP diastolic 42–65
--- NOTE | 2018-01-17 00:01 | NUR ---
Pts made comfortable with lounge chair.
--- NOTE | 2018-01-17 12:51 | NUR ---
PTS MEAL TRAY PLACED IN ROOM.
--- NOTE | 2018-01-17 13:52 | NUR ---
CARDIOLOGY NURSE CONTACTED ABOUT PT BLOOD PRESSURE DROPPING WITH CARDIZEM AND HEART RATE BACK UP TO 120-140 WITHOUT CARDIZEM. SHE STATES SHE WILL SPEAK TO DR. DIAMOND AND CALL BACK.
--- NOTE | 2018-01-17 16:29 | EKG ---
[place] [address] ELECTROCARDIOGRAM REPORT Name: EVELINE CORRIGAN Room: [address] ADM IN [facility].#: [id number] Admission: 01/16/18 Attend Phys: Tabby Little Discharge: Date of : 49 Report #: [id number] THIS REPORT FOR: //name// [facility] ED Test Date: 2018-01-16 Test Time: 20:14:40 Pat Name: EVELINE CORRIGAN Department: Room: [facility] Gender: F Manager Contract: [place] : 1945 Requested By: Shandra Deras Order Number: [id number] MD: Edison Hernandez Measurements Intervals [place] Rate: 137 P: [place]: QRS: 56 QRSD: 82 T: 68 QT: 332 QTc: 502 Interpretive Statements Atrial fibrillation Ventricular premature complex Low voltage, precordial leads Nonspecific repol abnormality, diffuse leads Prolonged QT interval Compared to ECG 01/02/2018 13:39:08 Ventricular premature complex(es) now present Early repolarization now present Right ventricular hypertrophy no longer present Electronically Signed On 01-17-2018 16:28:44 CDT by Edison Hernandez [email or web address] <ELECTRONICALLY SIGNED> By: Edison Hernandez MD, [facility] 01/17/18 1628 13 13 Edison Hernandez MD, [facility] /EPI
--- NOTE | 2018-01-17 18:50 | NUR ---
PATIENT RESTIN IN BED. VITAL SIGNS STABL;E. HEART RATE IS ELEVATED AND A FLUTTER, NEW ORDER FOR PO AMIODARONE OBTAINED AND FIRST DOSE GIVEN. MICAH HAS HAD RECENT STROKE AND JUST LEFT REHAB, FLACCID RIGHT SIDE AND APHASIC. IV ABX PER ORDERS. PEG TUBE TO BE USED FOR SUPPLEMTNAL NUTRITION AND MEDICATIONS. AT BEDSIDE. PATIENT IS Q2H TURN. HOURLKY ROUNDING COMPLETD FOR PATIENT SAFETY AND TERRY HAS PARTICIPATED TO HER BEST ABILITY.
[2018-01-18] VITALS: BP 107/59
[2018-01-18 03:59] VITALS: BP 101/60; BP 175/95
[2018-01-18 05:28] LABS: HEMATOCRIT 31.4 % (37.0-47.0); HEMOGLOBIN 9.9 gm/dL (12.0-15.0); MCH 26.3 pg (26.0-34.0); MCHC 31.4 g/dL (28.0-37.0); MCV 83.9 fL (80.0-100.0); MPV 10.3 fl. (7.2-11.1); RBC 3.75 mil/uL (4.20-5.00); RDW-CV 20.1 % (10.5-14.5); WBC 12.6 thou/uL (4.0-11.0)
[2018-01-18 05:40] LABS: ALBUMIN 2.1 g/dL (3.4-5.0); CREATININE 1.1 mg/dL (0.6-1.3); MAGNESIUM 1.9 mg/dL (1.8-2.4); POTASSIUM 3.4 mmol/L (3.5-5.1); TOTAL BILIRUBIN 2.3 mg/dL (<0.1-1.0); TOTAL PROTEIN 6.3 g/dL (6.4-8.2)
--- NOTE | 2018-01-18 07:47 | NUR ---
PATIENT PROGRESSING TOWARDS GOALS: HEART RATE NOW CONTROLLED AFTER ADDITIONAL IV DIGOXIN GIVEN. PATIENT REMAINS ON PO AMIODARONE AND DIGOXIN. BLOOD PRESSURE REMAINS SOFT BUT MAP >60. LASIX HELD DUE TO LOW BP. PATIENT REPOSITIONED Q2H, SKIN INTEGRITY MAINTAINED. CRISTOPHER CARE PROVIDED WITH INCONTINENCE CHECKS. ORAL CARE PROVIDED THROUGHOUT SHIFT. HOURLY ROUNDING OBSERVED. CALL LIGHT WITHIN REACH
[2018-01-18 08:00] VITALS: BP 115/59
--- NOTE | 2018-01-18 09:16 | NUR ---
ASSUMED CARE OF PATIENT AFTER REPORT THIS MORNING. PATIENT AWAKE AND ALERT. UNABLE TO ASSESS ORIENTATION DUE TO APHASIA. PHYSICAL ASSESSMENT COMPLETED AND CHARTED. WHEN ASKED IF IN PAIN PATIENT SHOOK HER HEAD NO. MEDICATIONS WILL BE GIVEN BY STUDENT NURSE WITH INSTRUCTOR, SEE EMAR FOR DOCUMENTATION. VITAL SIGNS OBTAINED BY STUDENT NURSE, STABLE. OXYGEN SATURATION WITHIN NORMAL LIMITS ON 0.5 LPM PER NASAL CANULA. PATIENT TRANSFER WITH ASSISTANCE FROM STAFF. CALL LIGHT WITHIN REACH. FAMILY TO USE CALL LIGHT FOR PATIENT NEEDS. NO APPARENT NEEDS AT THIS TIME. NURSING WILL CONTINUE TO MONITOR.
[2018-01-18 11:48] VITALS: BP 116/60
--- NOTE | 2018-01-18 14:18 | NUR ---
CM ASSESSMENT: Pt is A&O, nonverbal. Dtr at bedside and provides hx. Pt was recently discharged from [facility] last Tuesday to home with Fany , after a CVA. Pt has a lift device and tube feeding at home through [facility]. Dtr states that they are waiting for a wc, dtr states that [employer] is out of the wc and had to order once. Spoke with María at [facility] to confirm, she will check and let CM know. Dtr is concerned that Pt will not be able to get to two important Drs appts next . CM discussed alternate transportation services if wc is not received before then. Dtr informed that a [employer] ny was taken while Pt was at [place], CM left message for Marilee at [facility], to set the status of Pt's ny. Pt resides at home with her and grandson. Pt as a strong support sx, family rotates shifts with Pt. Plan is for Pt to return home with HH [place]. Family does not want Pt to return to [place]. Following.
[2018-01-18 16:57] VITALS: BP 111/48
--- NOTE | 2018-01-18 18:03 | NUR ---
PATIENT REMAINS APHASIC, AWAKE AND ALERT. NO COMPLAINTS OF PAIN. IV INFILTRATED. ATTEMPTED TO START NEW IV WITHOUT SUCCESS. CALLED HUMAN RESOURCES PARTNER AND SHE HAD NO LUCK EITHER. WILL NOTIFY ONCOMING ORDER ENTRY CLERK AND SEE IF THEY CAN ATTEMPT. TUBE FEEDING PUMP IN ROOM. WAITING FOR DIETARY TO BRING FEEDING AND TUBING. PATIENT DENIES NEEDS AT THIS TIME. CALL LIGHT WITHIN REACH AND FAMILY AT BEDSIDE TO MAKE NEEDS KNOWN. NURSING WILL CONTINUE TO MONITOR.
--- NOTE | 2018-01-18 18:26 | NUR ---
TUBE FEEDING STARTED AND INFUSING AT 60 ML/HR TO PEG TUBE. ISOSOURCE 1.5 ERVIN INFUSING ORDERED.
[2018-01-18 20:00] VITALS: BP 112/43
[2018-01-19] VITALS: BP 101/57
--- NOTE | 2018-01-19 00:54 | NUR ---
RECIEVED REPORT AND ASSUMED CARE OF PATIENT AT 1930. PROVINCE ARCHIVIST IN PLACE TRACING AFIB. ASSESSMENT AND VITALS COMPLETED CHARTED, VSS. PATIENT APHASIC BUT ALERT AND AWAKE. PATIENT ABLE TO SHAKE HEAD "YES AND NO" FOR SIMPLE QUESTIONS. PATIENT DENIES PAIN. PATIENT LOST IV ACCESS ON PREVIOUS SHIFT. MULTIPLE ATTEMPTS TO OBTAIN ACCESS WITH NO SUCCESS. PHYSICIAN NOTIFIED AND ORDERED ORAL ABX AND REPORTED TO ADDRESS IT IN THE MORNING. GOAL FOR PATIENT IS TO REMAIN RATE CONTROLLED WITH NO EFFECTS ON BLOOD PRESSURE. CALL LIGHT WITHIN REACH. REPORT GIVEN TO NEYMAR GAMEZ RN, AT THIS TIME.
[2018-01-19 04:00] VITALS: BP 96/55
[2018-01-19 04:44] LABS: HEMATOCRIT 32.1 % (37.0-47.0); MCH 26.3 pg (26.0-34.0); MCHC 31.2 g/dL (28.0-37.0); MCV 84.4 fL (80.0-100.0); RBC 3.8 mil/uL (4.20-5.00); WBC 12.3 thou/uL (4.0-11.0)
--- NOTE | 2018-01-19 05:06 | NUR ---
ASSUMED CARE OF PT AT 0030 FROM JANNETTE DIAMOND RN, I CONCUR WITH THE DOCUMENTED ASSESSMENT. PT ALERT AND APHAGIC VSS. PTS DAUGHTER AT BEDSIDE. WILL CONTINUE PLAN OF CARE.
[2018-01-19 05:07] LABS: ALBUMIN 2.1 g/dL (3.4-5.0); CALCIUM 9.3 mg/dL (8.5-10.1); CREATININE 1.1 mg/dL (0.6-1.3); MAGNESIUM 1.8 mg/dL (1.8-2.4); POTASSIUM 3.7 mmol/L (3.5-5.1); TOTAL BILIRUBIN 1.7 mg/dL (<0.1-1.0); TOTAL PROTEIN 6.4 g/dL (6.4-8.2)
[2018-01-19 08:00] VITALS: BP 127/61
--- NOTE | 2018-01-19 10:17 | NUR ---
0753 ASSUMED CARE OF PATIENT. SEE DOCUMENTED ASSESSMENT. TUBE FEEDING IS CURRENTLY OFF. PT INCONTINENT OF URINE
--- NOTE | 2018-01-19 10:20 | NUR ---
MAGNESIUM REPLACEMENT STARTED AFTER INITIATING NEW IV SITE
--- NOTE | 2018-01-19 11:11 | NUR ---
María from [facility] here to malka mckeon
--- NOTE | 2018-01-19 11:28 | NUR ---
CHEST FILM IN PROGRESS,PORTABLE.
[2018-01-19 11:43] VITALS: BP 139/67
--- NOTE | 2018-01-19 15:18 | NUR ---
REPORT TO DOUGIE GUARDADO
--- NOTE | 2018-01-19 16:08 | CON ---
[address] [address] CONSULTATION Name: MEENULUIS MLANDON Patel Room: [address] IN .R.#: [id number] Admission: 01/16/18 Attend Phys: Tabby Little Discharge: Date of : 49 Report #: [id number] THIS REPORT FOR: //name// CC: Bakari Rodriguez DATE OF SERVICE: 01/17/2018 CHIEF COMPLAINT: Elevated heart rate, shortness of breath. HISTORY OF PRESENT ILLNESS: The patient is a 72-year-old debilitated patient, status post significant stroke on 12/02/2017 with respiratory failure and prolonged ICU hospitalization, presented with atrial fibrillation with heart rates in the 150s. This was actually not a new problem that she had had this in the inpatient. At this point, she is on IV Cardizem and is without symptoms of shortness of breath or chest discomfort. She is aphasic and lot of this history is obtained from chart record. There is no record of syncope or presyncope, but her had said that she had been increasing fluid retention in her lower extremities. There is no significant fevers or chills. She had pneumonia in a previous hospitalization. Her ECG did not show any acute ST segment changes, and lab studies are indicating she did not have a myocardial infarction based on her troponin level of 0.06. Her BNP is elevated though. Historically, she has a history of normal LV function. PAST MEDICAL HISTORY: Atrial fibrillation, pneumonia. CVA, hemorrhagic frontal lobe, transferred to [facility]. Hypertension, chronic kidney disease, asthma. MEDICATIONS: Aspirin 81 mg daily, atorvastatin 20 mg daily, Pulmicort, metoprolol 25 mg. She had previously been on torsemide and benazepril. SOCIAL HISTORY: Nonsmoker, nondrinker. FAMILY HISTORY: Noncontributory. REVIEW OF SYSTEMS: Not obtainable. PHYSICAL EXAMINATION: GENERAL: The patient is alert, cooperative. VITAL SIGNS: Stable. She is in no apparent distress. HEENT: Eyes, EOMs intact[place] [address] CONSULTATION Name: EVELINE CORRIGAN Jorge Room: [address]#: [id number] Admission: 01/16/18 Attend Phys: Tabby Little Discharge: Date of : 49 Report #: [id number] NECK: Supple. No jugular venous distention. CARDIOVASCULAR: Irregular. I cannot hear a rub or gallop. LUNGS: Diminished breath sounds. ABDOMEN: Nontender. EXTREMITIES: There is 1-2+ edema. NEUROLOGIC: Not formally tested. Electrocardiogram does not show any acute ST segment changes. LABORATORY DATA: Hemoglobin is 10.2, white blood count is 14.5, platelet count is 260,000. Sodium 144, potassium 3.9, chloride 107, CO2 is 28, BUN is 20, creatinine is 1.1, AST is 19, ALT is 43. Troponin I is 0.06. BNP 6767. IMAGING: Chest x-ray shows cardiomegaly and mild CHF. IMPRESSION: 1. Atrial fibrillation. This is chronic and stable on IV Cardizem. We will continue with a rate control strategy. Because of anticoagulation issues, I would not recommend cardioversion. 2. Status post cerebrovascular accident, I would consult Neurology and have their recommendations in regards to anticoagulation, most likely given her most recent cerebrovascular accident within the last 6 weeks, we will not be able to fully anticoagulate her. 3. Acute diastolic congestive heart failure. I will give her gentle dose of IV Lasix. 4. Hypertension as noted above, this is relatively stable on IV Cardizem. 5. Status post cerebrovascular accident. 6. Debilitation. <ELECTRONICALLY SIGNED> By: Edison Hernandez MD, FACC 01/19/18 1608 0927 1536Edison Hernandez MD, FACC /nt
[2018-01-19 16:09] VITALS: BP 111/73
--- NOTE | 2018-01-19 18:42 | NUR ---
I ASSUMED CARE OF THE PATIENT A HAND OF AT 1515. SHE IS ALERT AND ORIENTED BUT UNABLE TO SPEAK, BUT SAYS A LOT WITH HER FACIAL EXPRESSION AND IS ABLE TO NOD APPROPRIATELY. I HAVE ELEVATED THE RIGHT SIDE OF HER BODY TO HELP WITH THE SWELLING. HOURLY ROUNDING WAS COMPLETED AND PATIENT NEEDS WERE MET. PAIN IS DENIED. FAMILY IS AT THE BEDSIDE. ALL MEDS GO THROUGH THE TUBE AND SHE EATS NORMAL TRAYS WITH ASSISTANCE DURING THE DAY AND TUBE FEED IS SCHEDULED FROM 1800 TO 0600. SHE WAS TURNED EVERY TWO HOURS. WILL CONTINUE TO MONITOR. SHE IS INCONT OF BOWEL AND BLADDER.
[2018-01-19 20:00] VITALS: BP 106/60
[2018-01-20] VITALS: BP 112/52
[2018-01-20 04:00] VITALS: BP 114/64
--- NOTE | 2018-01-20 04:36 | NUR ---
PATIENT RESTED IN BED, NO ACUTE CHANGES. PATIENT DID NOT SHOW SIGNS OF DISTRESS. PATIENT TURN Q2 HOURS. PATIENT TOLERATED TUBE FEEDING WELL . PATIENT MAINTAIN AFIB RUNNING IN THE 110'S. PATIENT ALERT AND AWAKE, INCONTIENT OF URINE AND STOOL. PATIENT VITALS WERE WITHIN NORMAL LIMITS. FALL PRECAUTIONS IN PLACE, BED ALARM ON, CALL LIGHT WITHIN REACH, GRANDSON AT BEDSIDE.
[2018-01-20 05:06] LABS: HEMATOCRIT 34.3 % (37.0-47.0); HEMOGLOBIN 10.6 gm/dL (12.0-15.0); MCHC 30.8 g/dL (28.0-37.0); MCV 84.2 fL (80.0-100.0); MPV 9.9 fl. (7.2-11.1); RBC 4.07 mil/uL (4.20-5.00); RDW-CV 19.8 % (10.5-14.5)
[2018-01-20 05:23] LABS: ALBUMIN 2.3 g/dL (3.4-5.0); CALCIUM 9.4 mg/dL (8.5-10.1); CREATININE 1.1 mg/dL (0.6-1.3); POTASSIUM 3.6 mmol/L (3.5-5.1); TOTAL BILIRUBIN 1.6 mg/dL (<0.1-1.0); TOTAL PROTEIN 6.8 g/dL (6.4-8.2)
[2018-01-20 08:00] VITALS: BP 107/68
[2018-01-20 11:50] VITALS: BP 133/64
--- NOTE | 2018-01-20 14:12 | NUR ---
ASSUMED CARE OF PT AT 0730. PT LYING IN BED. FAMILY AT BEDSIDE. PT ALERT, AWAKE, ANSWERS YES, NO QUESTIONS, FOLLOWS COMMANDS, EXPRESSIVE APHASIA NOTED. PT HAS RIGHT SIDED WEAKNESS, RIGHT UPPER EXTREMITY FLACCID FROM STROKE. PT TRACING AFIB ON THE SAIL REPAIRER. RATE IN THE LOW 100'S. PT ON PO AMIO. MEDICATIONS CHANGED TO PO FROM PER TUBE PT CLEARED BY SPEECH THERAPY AND ON CARB CONSISTENT DIET AND THIN LIQUIDS. PT TOLERATED MEDICATIONS WITH THIN LIQUIDS AND APPLESAUCE TO FOLLOW WHILE SITTING AT 90 DEGREE ANGLE. EDEMA NOTED TO BILATERAL LE'S AND FEET. CARDIOLOGY HERE TO SEE PT. ORDERS RECEIVED TO INCREASE IV LASIX TO 80MG IVP BID. REFER TO EMAR. PT ON RA SAT UPPER 90'S. DENIES ANY PAIN OR SHORTNESS OF BREATH. PEG TUBE IN PLACE. PT INCONT OF BOWEL AND URINE AT TIMES. PT GOAL FOR TODAY IS TO INCREASE ACTIVITY, MONITOR HEART RATE AND RHYTHM, PT AND OT. AM ASSESSMENT CHARTED, MEDICATIONS PER MAR. PT REPOSITIONED EVERY 2 HOURS FOR COMFORT. HOURLY ROUNDING OBSERVED. BED IN LOW POSITION. BED ALARM IN PLACE. FALL PRECAUTIONS IN PLACE. CALL LIGHT WITHIN REACH. WILL CONTINUE PLAN OF CARE.
[2018-01-20 15:29] VITALS: BP 117/63
--- NOTE | 2018-01-20 17:08 | NUR ---
NO ACUTE CHANGES THROUGHOUT SHIFT. REFER TO CHARTING. PT WORKED WITH PHYSICAL THERAPY TODAY- UP TO RECLINER WITH MAX ASSIST OF 2 AND GALO LIFT. PT SLOWLY PROGRESSING TOWARDS GOALS. TOLERATING PO FAIR. PT RECEIVED ADDITIONAL IV LASIX TODAY. REFER TO EMAR. INCONT OF URINE X 8 TIMES TODAY. PT CONTINUES TO BE ALERT, AWAKE AND ANSWERS YES, NO QUESTIONS. PT FOLLOWS COMMANDS APPROPRIATELY. RIGHT SIDED WEAKNESS NOTED. EXPRESSIVE APHASIA NOTED. EDEMA NOTED TO BILATERAL LE'S AND FEET. PT CONTINUES TO TRACE AFIB ON THE SERVICE TECHNICIAN. RATE IN THE LOW 100'S. ON RA SAT UPPER 90'S. DENIES ANY SHORTNESS OF BREATH OR PAIN. PEG TUBE IN PLACE AND TO RUN FROM 9779-3161 AT 60ML/HR. MEDICATIONS PER NOV. PT REPOSITIONED EVERY 2 HOURS FOR COMFORT. HOURLY ROUNDING OBSERVED. BED IN LOW POSITION. BED/CHAIR ALARM IN PLACE. FALL PRECAUTIONS IN PLACE. CALL LIGHT WITHIN REACH. WILL CONTINUE PLAN OF CARE.
[2018-01-20 23:33] VITALS: BP 100/56
--- NOTE | 2018-01-21 03:37 | NUR ---
PT DROWSY AROUSABLE. ANSWERS YES/NO QUESTIONS. SLOW RESPONCE. ON ISOSOURCE AT 60MLS/HR TO RUN FROM 4651-3110. TAKES PILLS CRUSHED IN APPLE SAUCE. TELEMETRY SHOWS A-FIB. INCONTINENT OF URINE AND BM. WILL CONTINUE TO MONITOR.
[2018-01-21 04:12] VITALS: BP 119/63
[2018-01-21 08:15] VITALS: BP 105/59
--- NOTE | 2018-01-21 10:37 | NUR ---
Plan continues to be for Pt to dc home with her with Fany p:[phone], f:[phone]. Pt has new wc in room from [facility].
[2018-01-21 12:35] VITALS: BP 119/59
[2018-01-21 16:00] VITALS: BP 142/63
--- NOTE | 2018-01-21 17:29 | NUR ---
REPORT RECEIVED AND ASSUMED CARE AT 0730. VSS. CARDIAC MONITORING IN PLACE. PT ON RA, UP WITH MAX ASSIST AND GALO LIFT. PT DENIES ANY COMPLAINTS OF PAIN THIS MORNING. PT TOLERATED MEDS CRUSHED IN APPLESAUCE PO. PT FAMILY MENTIONED SOME DISCOMFORT IN L ARM. PO TYLENOL ADMINISTERED PRN, PT CONFIRMED IT WAS EFFECTIVE. DISCUSSED PLAN OF CARE WITH PT FAMILY. VERBALIZED UNDERSTANDING PLAN OF CARE. PT ACHS ACCU CHECK, CARB CONTROL DIET PO DURING THE DAY. TUBE FEEDING 8122-5435. HOURLY ROUNDING COMPLETED AND ALL NEEDS MET. PT TURNED EVERY 2 HOURS. BED IN LOWEST POSITION, CALL LIGHT WITHIN REACH, BED ALARM ON. WILL CONTINUE TO MONITOR FOR REMAINDER OF THE SHIFT
[2018-01-21 20:10] VITALS: BP 118/55
[2018-01-21 23:49] VITALS: BP 104/58
[2018-01-22 03:44] VITALS: BP 97/46
[2018-01-22 04:48] LABS: CALCIUM 9.5 mg/dL (8.5-10.1); CREATININE 1.1 mg/dL (0.6-1.3); MAGNESIUM 2.1 mg/dL (1.8-2.4); POTASSIUM 3.9 mmol/L (3.5-5.1)
--- NOTE | 2018-01-22 05:49 | NUR ---
A&O X4 CALM COOPERITVE. PT IS APHSIA. DENIES PAIN. AFIB ON THE MONITOR. Q2 TURNS. TUBE FEEDING AT HS. VITALS WNL. SEE MAR. SEE CHARTING. FALL PRECATUIONS IN PLACE. HOURLY ROUNDING FOR SAFETY.
[2018-01-22 08:00] VITALS: BP 113/59
[2018-01-22 11:29] VITALS: BP 118/71
--- NOTE | 2018-01-22 11:54 | NUR ---
ASSUMED CARE OF PT AT 0730. PT LYING IN BED. DAUGHTER AT BEDSIDE. PT ALERT, AWAKE, ANSWERS YES, NO QUESTIONS, FOLLOWS COMMANDS, EXPRESSIVE APHASIA NOTED. PT GIVEN TYLENOL FOR GRIMACING, FAMILY REQUEST STATING LEFT ARM PAIN WITH RELIEF. PT TRACING AFIB ON THE DESKTOP PUBLISHING SPECIALIST. RATE IN THE LOW 100'S. DIGOXIN DOSE INCREASED T-1. PT ON AMIO WELL. MONITORING CLOSELY. EDEMA NOTED TO BILATERAL LE'S AND FEET. PT RECEIVING LASIX. PT ON RA SAT 96%. DENIES ANY SHORTNESS OF BREATH. PT INCONT OF BOWEL AND BLADDER. PT GIVEN PRN DULCOLAX THIS AM WITH MORNING MEDICATIONS. PT HAD LARGE LIGHT BROWN FORMED BOWEL MOVEMENT. PEG TUBE IN PLACE-PT RECEIVES ISOSOURCE AT 60ML HR FROM 2300-6300. PT DAUGHTER AND REQUESTING REHAB CONSULT FOR UPSTAIRS. DR DANIELSON HERE TO SEE PT. ORDERS RECEIVED FOR REHAB CONSULT. RIGHT SIDED WEAKNESS NOTED. AM ASSESSMENT CHARTED. MEDICATIONS PER NOV. PT REPOSITIONED EVERY 2 HOURS FOR COMFORT. HOURLY ROUNDING OBSERVED. BED IN LOW POSITION. BED ALARM IN PLACE. FALL PRECAUTIONS IN PLACE. CALL LIGHT WITHIN REACH. WILL CONTINUE PLAN OF CARE.
[2018-01-22 15:34] VITALS: BP 121/61
--- NOTE | 2018-01-22 17:23 | NUR ---
NO ACUTE CHANGES THROUGHOUT SHIFT. REFER TO CHARTING. PT AND DAUGHTER AT BEDSIDE THROUGHOUT ENTIRE SHIFT. REHAB CONSULT IN PLACE. TUBE FEEDING TO RUN AT 2680-3072 AT 60ML/HR. PT CONTINUES TO TRACE AFIB/AFLUTTER ON THE DIRECTOR OF HOME CARE HOSPICE, RATE IN THE LOW 100'S. CONTINUES TO BE ON RA SAT UPPER 90'S. DENIES ANY SHORTNESS OF BREATH, EXPRESSIVE APHASIA NOTED. RIGHT SIDED WEAKNESS NOTED. RIGHT UPPER EXTREMITY FLACCID, PT ABLE TO MOVE RIGHT LOWER EXTREMITY THIS AFTERNOON WHILE FOLLOWING COMMANDS. MEDICATIONS PER NOV. PT REPOSITIONED EVERY 2 HOURS FOR COMFORT. PT INCONT OF BOWEL AND BLADDER. PT RECEIVED COMPLETE BED BATH BY NURSING STAFF THIS AFTERNOON. HOURLY ROUNDING OBSERVED. BED IN LOW POSITION. BED ALARM IN PLACE. FALL PRECAUTIONS IN PLACE. CALL LIGHT WITHIN REACH. WILL CONTINUE PLAN OF CARE.
[2018-01-22 20:10] VITALS: BP 108/50
[2018-01-23] VITALS (7 sets, daily range): BP systolic 108–137; BP diastolic 39–70
--- NOTE | 2018-01-23 05:38 | NUR ---
A&O X4 CALM COOPERITVE. PT APHIHA AND RIGHT SIDE PARAYLSIS. PT REPORTED IN LEFT [place], RIELF NOTED WITH MEDICATION. Q2TUNS. RA. ACHS. TUBEFEEDING. AFIB ON THE MONITOR. MAX ASSIST WITH LIFT TO TRANSFER. VITALS WNL. SEE MAR. SEE CHARTING. FALL PRECAUTIONS IN PLACE. HOURLY ROUNDING FOR SAFETY.
[2018-01-23 05:43] LABS: HEMOGLOBIN 12.4 gm/dL (12.0-15.0); MCH 26.4 pg (26.0-34.0); MCHC 31.8 g/dL (28.0-37.0); MCV 83.2 fL (80.0-100.0); RBC 4.69 mil/uL (4.20-5.00); RDW-CV 19.5 % (10.5-14.5); WBC 13.1 thou/uL (4.0-11.0)
[2018-01-23 05:50] LABS: CALCIUM 9.9 mg/dL (8.5-10.1); MAGNESIUM 2.2 mg/dL (1.8-2.4); POTASSIUM 4.1 mmol/L (3.5-5.1)
--- NOTE | 2018-01-23 08:45 | NUR ---
ASSUMED PT CARE AND RECEIVED REPORT AT 0730. PT ALERT, ATTEMPTS TO COMMUNICATE WITH SMILES AND NODS. VSS, MONITOR ON TRACING AFIB/FLUTTER. PT. DENIES CURRENT PAIN. FULL ASSESSMENT COMPLETED, REFER TO CHARTING. PT. INCONT. OF URINE. PT. TRANSFERED TO RECLINER WITH LIFT, TOLERATED WELL. PT. SPOUSE AT BEDSIDE, CALL LIGHT IN REACH, WILL CONTINUE WITH PLAN OF CARE.
--- NOTE | 2018-01-23 09:37 | NUR ---
Rehab consult placed, updated vocational rehabilitation consultant. If rehab is not an option, plan is for Pt to return home with family support and Fany HERNANDEZ. Following.
--- NOTE | 2018-01-23 16:04 | NUR ---
RECEIVED CONSULT FOR POSSIBLE REHAB ADMISSION. CONSULT HAS BEEN ACKNOWLEDGED BY ADMINISTRATIVE LIBRARY ASSISTANT AND DR. PRITCHETT. PT ADMITTED WITH PNA AND AFIB, HAD RECENT HEMORRHAGIC STROKE WITH RESIDUAL WEAKNESS. PT/OT ARE SEEING PATIENT ST COGNITIVE EVAL IS PENDING. PT IS MAX A - DEP FOR BED MOBILITY AND TRANSFERS. FAMILY HAS BEEN CARING FOR PATIENT AT HOME. SPOKE WITH TABITHA KEARNS INFORMED WILL NOT HAVE A REHAB BED UNTIL TUESDAY. WILL FOLLOW ALONG TO SEE IF PATIENT PROGRESSES AND IS ABLE TO TOLERATE 3 HOURS OF THERAPY. THANK YOU FOR THIS REFERRAL.
--- NOTE | 2018-01-23 19:02 | NUR ---
PT. PROGRESSING TOWARDS GOALS. UP TO RECLINER MOST OF THE DAY WITH USE OF LIFT. PT. IS SHOWING PURPOSEFUL MOVEMENT TO RIGHT FOOT, ATTEMPTING TO DO LEG LIFTS WHILE IN CHAIR. PT. HAS DENIED PAIN TODAY. INCONT. OF URINE MULTIPLE TIMES, HOWEVER NO BM'S THIS SHIFT. SHE HAS BEEN ABLE TO EXPRESS NEEDS WHEN ASKED SIMPLE YES/NO QUESTIONS. PT. FAMILY HOPING FOR ADMISSION TO REHAB HERE. HOURLY ROUNDING COMPLETED THROUGH OUT THE DAY FOR PT. SAFETY.
[2018-01-24] VITALS (7 sets, daily range): BP systolic 108–117; BP diastolic 47–57
--- NOTE | 2018-01-24 07:25 | NUR ---
ASSUMED CARE OF PT AT 1930, NURSING ASSESSMENT COMPLETED AT START OF SHIFT. PT APHASIC. GRANDSON AT BEDSIDE. PT TRACING AFIB ON HEART MONITOR. Q2H REPOSITIONING COMPLETED, LEFT SIDE WEAKNESS, FALL PRECAUTIONS IN PLACE, CALL LIGHT WITHIN REACH.
--- NOTE | 2018-01-24 07:30 | NUR ---
PT TURNED AND CLEANED UP AFTER URINARY INCONTINENCE. PT HAS RT SIDED HEMIPARESIS NOTED AND IS UNABLE TO VERBALIZE CONCERNS AT THIS TIME. PT UNABLE TO ANSWER QUESTIONS BUT IS CALM AND COOPERATIVE AT THIS TIME. PT FAMILY AT BEDSIDE, FAMILY IS VERY KNOWLEDGEABLE REGARDING PT CARE, EDUCATION GIVEN REGARDING CALLING OUT FOR ANY NEEDS. WILL CONTINUE TO ASSESS AND MONITOR.
--- NOTE | 2018-01-24 10:36 | NUR ---
Rehab is able to accept Pt, liaison to initiate insurance auth today. Updated Pt and family. Anticipate dc once ins auth obtained.
--- NOTE | 2018-01-24 17:35 | NUR ---
CONTINUING TO FOLLOW PATIENT ALONG WITH DR. PRITCHETT. PATIENT PARTICIPATING WITH THERAPIES. PATIENT GETTING SOME RETURN WITH THERAPIES AND HAS BEEN CLEARED FOR REGULAR DIET WITH TUBE FEEDINGS AT NIGHT. SPOKE WITH THERAPIES AND FEEL PATIENT IS A GOOD REHAB CANDIDATE. HAVE INITIATED INSURANCE AUTH. SPOKE WITH TABITHA KEARNS AND INFORMED OF ACCEPTANCE TO REHAB PENDING INSURNACE AUTH.
--- NOTE | 2018-01-24 18:23 | NUR ---
PT VSS THIS SHIFT AND A-FIB/FLUTTER ON THE MONITOR. PT TOLERATED ALL MEDICATIONS CRUSHED AND GIVEN WITH APPLESAUCE THIS SHIFT. THIS RN HELD THE LIDOCAINE PATCH THIS MORNING DUE TO A LIDOCAINE PATCH ALREADY BEING IN PLACE UPON AM ASSESSMENT, DOCUMENTED IN NOV. PT ABLE TO STAND PIVOT TO THE CHAIR THIS AFTERNOON. PT INCONTINENT OF BOWEL & BLADDER THIS SHIFT AND REQUIRES Q2 TURNS DUE TO RT SIDED HEMIPARESIS. PT TOLERATES TURNS WELL WELL BEING CLEANED UP. TUBE FEEDING RESTARTED AT 1830 WITH A RESIDUAL OF 0 AT THAT TIME.
[2018-01-25 04:50] LABS: HEMATOCRIT 37.8 % (37.0-47.0); HEMOGLOBIN 11.9 gm/dL (12.0-15.0); MCH 26.1 pg (26.0-34.0); MCHC 31.4 g/dL (28.0-37.0); MPV 10.3 fl. (7.2-11.1); RBC 4.56 mil/uL (4.20-5.00); RDW-CV 19.3 % (10.5-14.5); WBC 12.8 thou/uL (4.0-11.0)
[2018-01-25 05:12] LABS: ALBUMIN 2.7 g/dL (3.4-5.0); CALCIUM 9.9 mg/dL (8.5-10.1); CREATININE 1.2 mg/dL (0.6-1.3); MAGNESIUM 2.1 mg/dL (1.8-2.4); POTASSIUM 3.7 mmol/L (3.5-5.1); TOTAL BILIRUBIN 1.3 mg/dL (<0.1-1.0); TOTAL PROTEIN 7.1 g/dL (6.4-8.2)
--- NOTE | 2018-01-25 06:16 | NUR ---
ASSUMED PT CARE AT 19:15 REPORT RECEIVED FROM NURSE, PT IS ALERT AWAKE ORIENTED X3, APHASIA NOTED POST STROKE, OPENN EYES AND NODS TO AGREE. SMILE AT OCCASIONS. VITAL SIGNS WIHTIN NORMAL LIMIT. A FIB TO A FLUTTER ON THE TYPE PHOTOGRAPHY SUPERVISOR. ASSESSMENT PERFOREMED. NO COMPLAIN OR SIGN AND SYMPTOMS OF PAIN. PT HAS EDEMA LEVEL 3+ I LOWWER EXTREMITIES. PEG TUBE IN LEFT LOWER ABDOMEN RECEIVING ISOSOURCE 1-5 FEEDING INTERMITTENTLY. PEG SITE IS DRY DRESSING CLEAN AND INTACT. RESIDUAL ASSESSED. NO RESIDUAL FOUND. PT REPOSITIONED EVERY 2 HOURS. SHE IS INCONTENENT SO PADS CHANGED X 3 THIS SHIFT, HAD ONE BOWEL MOVEMENT. STOOL IS BROWN AND SOFT. MEDICATIONS WERE ADMINISTERED ORDERED WITH APPLE SAUCE. PT SWALLOW WELL. TUBE FEEDING CAHNGED IN THE AM AT 06:00. NEW TUBE AND NEW FEEDING BAG PROVIDED. PT IS NOW TURNED FACING THE LEFT SIDE . MADE COMFORTABLE IN BED. SKIN IS INTACT.
--- NOTE | 2018-01-25 06:41 | NUR ---
ASSUMED PT CARE AT 19:15 REPORT RECEIVED FORM NURSE. PT IS ALERT AWAKE ORIENTED X4 . APHASIA NOTED POST STORKE HX, OPEN EYES AND SMILE, NODS IN AGREEMENTS. VITAL SIGNS WITHIN NORMAL LIMIT. A FIB/ A FLUTTER ON THE MONITOR. ASSESSEMENT PERFOREMED. REFER TO CHART. NO COMPLAINT OR SIGN AND SYMPTOMS OF PAIN. PT HAS EDEMA LEVEL 3+ IN LOWER EXTREMITIES. PEG TUBE IN LEFT LOWER ABDOMEN RECEIVING ISOSOURCE 1.5 AT 60CC/HR. PEG SITE IS CLEAN, DRY, DRESSING IS INTACT. ZERO RESIDUAL OBTAINED. PT REPOSITIONNED EVERY 2 HOURS TO PREVENT FRICTION AND PRESSURE POINTS. SHE IS INCONTENENT SO PADS CHANGED X 3 THIS SHIFT. PT IS ON LASIX. ALSO INCONTENENT OF BOWEL. ONE BOWEL MOVEMENT NOTED. STOOL IS FORMED, SOFT AND BROWN. MEDICATIONS ADMINISTERED ORDERED WITH APPLE SAICE. PT SWALLOW WELL. TUBE FEEDING WAS STOPPED THIS AM DR FELIPE SAYS THAT REGULAR DIET CAN BE RESUMED AT LUNCH AND BREAKFAST. PT IS NOW TURNED ON THE LEFT SIDE. MADE COMFORATBLE. PEG TUBE IS FLUSHED WIHT 30 CC OF WATER. SKIN REMAINS INTACT
[2018-01-25 08:00] VITALS: BP 104/56
[2018-01-25] MEDS ORDERED: PACERONE 200 M200 M1 PO (10:06)
[2018-01-25] MEDS ORDERED: CEFUROXIME250 MG PO (10:06)
[2018-01-25] MEDS ORDERED: LASIX 80 MG TAB80 MG PO (10:06)
[2018-01-25] MEDS ORDERED: LANOXIN 0.25M0.25 M1 PO (10:06)
[2018-01-25 11:30] VITALS: BP 128/61
--- NOTE | 2018-01-25 11:57 | NUR ---
DC orders written, awaiting insurance auth for Pt to dc to acute rehab. Following.
--- NOTE | 2018-01-25 13:14 | NUR ---
ASSUMED CARE OF PATIENT THIS AM AT 0730. PATIENT IS ALERT, NONVERBAL. SHE IS ABLE TO NOD AND SHAKE HER HEAD TO ANSWER QUESIONS. PATIENT ASSISTED UP TO THE CHAIR THIS AM WITH GALO AND PLACED IN THE CHAIR. OT IN TO SEE PATIENT THIS AM. PATIENT DENIED THE NEED FOR PAIN MEDICATION THIS AM. TELE SHOWS A FIB. PLANS FOR POSSIBLE TRANSFER TO REHAB THIS AFTERNOON.
--- NOTE | 2018-01-25 14:26 | CON ---
[address] [address] CONSULTATION Name: EVELINE CORRIGAN Room: [address] IN M.R.#: [id number] Admission: 01/16/18 Attend Phys: Tabby Little Discharge: Date of : 49 Report #: [id number] THIS REPORT FOR: //name// CC: Bakari Rodriguez DATE OF SERVICE: 01/24/2018 REASON FOR CONSULTATION: Evaluation and recommendations regarding post-acute rehabilitation in a 72-year-old female status post cerebrovascular accident, admitted on 01/16/2018. She had rapid heart rate noted by home health nurse on Tuesday. She had been recently discharged from [facility] facility following cerebrovascular accident with right hemiplegia, expressive aphasia, n.p.o. with a feeding tube with shortness of air and palpitations. She has been followed closely by internal medicine, diagnosed with atrial fibrillation with RVR, bilateral pneumonia, left ischial ulceration, labile blood pressures favoring the low side and respiratory failure. She has been seen by PT, OT and speech. Her previous level of function prior to this stroke was modified independent to independent with activities of daily living. Current level of function is dependent with most occupational therapies, max assistance with physical therapies. She has not ambulated at this time. Speech language pathology, she has moderate to severe comprehension issues and expressive issues. She does have a supportive network including her daughter, grandson and . Goal of rehabilitation at this point would be further rehabilitation as well as family stability and caregiver training as the wish is to take her to the home setting as opposed to further skilled stay. MEDICATIONS: Reviewed and are available in the MAR. 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 FAMILY HISTORY: Stroke. SOCIAL HISTORY: No tobacco, alcohol or illicit drug use. REVIEW OF SYSTEMS: A 14-point review of systems is done and is negative except as mentioned in HPI, specifically no fever, chest pain, shortness of breath, abdominal pain or distention. ASSESSMENT: 1. Recent atrial fibrillation with rapid ventricular response. 2. Recent cerebrovascular accident with right hemiplegia and expressive aphasia as well as cognitive impairment. 3. [place] [address] CONSULTATION Name: EVELINE CORRIGAN Room: [address]#: [id number] Admission: 01/16/18 Attend Phys: Tabby Little Discharge: Date of : 49 Report #: [id number] 4. Hypertension. 5. Dysphagia. 6. Recent bilateral pneumonia. PLAN: 1. Recommend acute inpatient rehabilitation to facilitate safe discharge to the home setting where we can continue with aggressive therapies as well as family training and caregiver training. 2. We will follow until discharge. <ELECTRONICALLY SIGNED> By: Kerri Tijerina DO 01/25/18 1426 27 [id number] Tijerina DO /mariann
[2018-01-25 16:00] VITALS: BP 125/44
[2018-01-25 20:00] VITALS: BP 120/58
[2018-01-26] VITALS: BP 119/56
[2018-01-26 04:00] VITALS: BP 131/67
--- NOTE | 2018-01-26 04:27 | NUR ---
ASSUMED PT CARE AT 1930, NURSING ASSESSMENT COMPLETED THIS SHIFT. HOURLY ROUNDING COMPLETED, FALL PRECAUTIONS IN PLACE, TRACING ATRIAL FIB THIS SHIFT, DENIES PAIN, Q2H REPOSITIONING COMPLETED, PEG TUBE FEEDING CONTINUES TO INFUSE AT 60ML/HR. PT SPOUSE AT BESIDE. HOURLY ROUNDING COMPLETED, CALL LIGHT WITHIN REACH.
[2018-01-26 08:00] VITALS: BP 128/52
--- NOTE | 2018-01-26 09:50 | NUR ---
PATIENT UP IN CHAIR TAKING PO WELL MEDS WITH APPLE SAUCE. TOLERATING PT.
--- NOTE | 2018-01-26 10:37 | NUR ---
Insurance authorized Pt's rehab stay, Pt will dc to rehab today. Liaison here to update family. CM to fax dc orders.
[2018-01-26 12:25] VITALS: BP 128/63
[2018-01-26 15:42] VITALS: BP 148/63
== END 2018-01-26 16:48 | DRG 177 ==
LOC: M.ERS 20:09 → M.TBA-ER 21:33 → M.2W 01-17 15:17
PROVIDERS: Internal Medicine; Personal Emergency Response Attendant; ADMIT Internal Medicine
DX: J15.6 Pneumonia due to other Gram-negative bacteria (principal); I50.31 Acute diastolic (congestive) heart failure; J96.90 Respiratory failure, unspecified, unspecified whether with hypoxia or hypercapnia; I13.0 Hypertensive heart and chronic kidney disease with heart failure and stage 1 through stage 4 chronic kidney disease, or unspecified chronic kidney disease; R65.10 Systemic inflammatory response syndrome (SIRS) of non-infectious origin without acute organ dysfunction; Z68.41 Body mass index [BMI] 40.0-44.9, adult; I69.359 Hemiplegia and hemiparesis following cerebral infarction affecting unspecified side; I48.91 Unspecified atrial fibrillation; E66.01 Morbid (severe) obesity due to excess calories; E03.9 Hypothyroidism, unspecified; J44.9 Chronic obstructive pulmonary disease, unspecified; I95.9 Hypotension, unspecified; N18.9 Chronic kidney disease, unspecified; R13.10 Dysphagia, unspecified; K80.20 Calculus of gallbladder without cholecystitis without obstruction; I69.320 Aphasia following cerebral infarction; Z87.01 Personal history of pneumonia (recurrent); Z93.1 Gastrostomy status; Z79.899 Other long term (current) drug therapy; Z79.82 Long term (current) use of aspirin

== ENCOUNTER 2018-01-26 12:48 | Inpatient (IN) | payer OTHER ==
[~2018-01-26] VITALS: Ht 172.7 cm; Wt 122.5 kg
[~2018-01-26 12:48] MED LIST changes: +ASPIRIN81 M2 PO; +CEFUROXIME250 MG PO; +LANOXIN 0.25M0.25 M1 PO; +LASIX 80 MG TAB80 MG PO; +LIDOCARE1 EACH TRANSDERM; +LIPITOR 20 MG T20 M1 PO; +LOPRESSOR; +LOPRESSOR25; +PACERONE 200 M200 M1 PO; +PULMICORT0.5 MG/22 INH; +SINGULAIR 10 MG10 M1
[2018-01-26 20:00] VITALS: BP 135/69
[2018-01-27 04:44] LABS: HEMATOCRIT 37.7 % (37.0-47.0); HEMOGLOBIN 11.7 gm/dL (12.0-15.0); MCV 83.8 fL (80.0-100.0); MPV 10.7 fl. (7.2-11.1); RBC 4.5 mil/uL (4.20-5.00); RDW-CV 18.9 % (10.5-14.5); WBC 13.3 thou/uL (4.0-11.0)
[2018-01-27 05:08] LABS: CALCIUM 10.3 mg/dL (8.5-10.1); CREATININE 1.1 mg/dL (0.6-1.3); POTASSIUM 3.3 mmol/L (3.5-5.1)
[2018-01-27 07:00] VITALS: BP 130/56
[2018-01-27 20:00] VITALS: BP 135/59
[2018-01-28 04:42] LABS: CREATININE 1.2 mg/dL (0.6-1.3); MAGNESIUM 2.3 mg/dL (1.8-2.4); POTASSIUM 3.9 mmol/L (3.5-5.1)
[2018-01-28 07:30] VITALS: BP 115/49
[2018-01-28 20:11] VITALS: BP 129/56
[2018-01-29 08:46] VITALS: BP 112/58
[2018-01-29 19:00] VITALS: BP 127/61
[2018-01-30 08:07] VITALS: BP 126/54
[2018-01-30 21:22] VITALS: BP 134/56
[2018-01-31 08:50] VITALS: BP 125/64
[2018-01-31 19:30] VITALS: BP 120/56
[2018-02-01 07:55] VITALS: BP 123/60
[2018-02-01 20:05] VITALS: BP 142/49
[2018-02-02 08:07] VITALS: BP 125/62
[2018-02-02 20:00] VITALS: BP 129/63
[2018-02-03 08:15] VITALS: BP 110/57
[2018-02-03 20:06] VITALS: BP 135/56
[2018-02-04 07:55] VITALS: BP 125/57
[2018-02-04 20:55] VITALS: BP 109/56
[2018-02-05 07:37] VITALS: BP 133/54
[2018-02-05 20:12] VITALS: BP 147/73
[2018-02-06 03:36] LABS: HEMATOCRIT 34.1 % (37.0-47.0); HEMOGLOBIN 10.9 gm/dL (12.0-15.0); MCH 26.6 pg (26.0-34.0); MCV 83.2 fL (80.0-100.0); MPV 10.2 fl. (7.2-11.1); RBC 4.09 mil/uL (4.20-5.00); RDW-CV 19.7 % (10.5-14.5)
[2018-02-06 03:55] LABS: CALCIUM 9.4 mg/dL (8.5-10.1); CREATININE 0.9 mg/dL (0.6-1.3); POTASSIUM 3.5 mmol/L (3.5-5.1)
[2018-02-06 08:08] VITALS: BP 134/74
[2018-02-06 20:11] VITALS: BP 126/54
[2018-02-06 22:14] LABS: URINE BILIRUBIN NEGATIVE (Negative); URINE BLOOD NEGATIVE (Negative); URINE CLARITY CLEAR; URINE COLOR YELLOW; URINE GLUCOSE-RANDOM NEGATIVE (Negative); URINE KETONES NEGATIVE (Negative); URINE LEUKOCYTES-REFLEX 3+ (Negative); URINE NITRITE-REFLEX POSITIVE (Negative); URINE PROTEIN NEGATIVE (Negative); URINE SPECIFIC GRAVITY 1.015 (1.005-1.030); URINE UROBILINOGEN 0.2 E.U./dl (0.2-1.0)
[2018-02-06 22:28] LABS: BACTERIA-REFLEX >30 Many /HPF (None Seen); CASTS None Seen /LPF (None Seen); CRYSTALS None Seen /LPF (None Seen); MUCUS 0-3 Light strn/LPF (None Seen); SQUAMOUS 0-3 Few /LPF (0-3); URINE RBC 0-2 Rare /HPF (0-2); URINE WBC-REFLEX >25 Many /HPF (0-5); WBC CLUMPS Many (None Seen)
[2018-02-07 08:00] VITALS: BP 126/49
[2018-02-07 20:00] VITALS: BP 132/60
[2018-02-08 07:37] VITALS: BP 130/57
[2018-02-08 19:30] VITALS: BP 126/46
[2018-02-09 08:11] VITALS: BP 131/62
[2018-02-09 20:00] VITALS: BP 146/54
[2018-02-10 08:00] VITALS: BP 116/45
[2018-02-10 20:00] VITALS: BP 120/45
[2018-02-11 08:30] VITALS: BP 112/52
[2018-02-11 20:00] VITALS: BP 133/55
[2018-02-12 08:25] VITALS: BP 130/61
[2018-02-12 20:00] VITALS: BP 141/61
[2018-02-13 07:24] VITALS: BP 130/50
[2018-02-13 20:00] VITALS: BP 134/49
[2018-02-14 07:30] VITALS: BP 118/69
[2018-02-14 20:45] VITALS: BP 119/54
[2018-02-15 08:00] VITALS: BP 127/56
[2018-02-15 20:30] VITALS: BP 147/48
[2018-02-16 07:52] VITALS: BP 117/53
[2018-02-16 20:00] VITALS: BP 124/58
[2018-02-17 08:00] VITALS: BP 134/51
[2018-02-17 20:00] VITALS: BP 121/52
[2018-02-18 08:21] VITALS: BP 118/44
[2018-02-18 20:00] VITALS: BP 124/37
[2018-02-19 08:00] VITALS: BP 118/47
[2018-02-19 19:58] VITALS: BP 110/44
[2018-02-20 07:38] VITALS: BP 109/68
[2018-02-20 19:55] VITALS: BP 122/40
[2018-02-21 05:46] LABS: CALCIUM 8.9 mg/dL (8.5-10.1); CREATININE 0.8 mg/dL (0.6-1.3); POTASSIUM 3.4 mmol/L (3.5-5.1)
[2018-02-21 08:00] VITALS: BP 129/57
--- NOTE | 2018-02-21 15:21 | PLAN ---
[address] [address] REHAB UNIT PLAN OF CARE Name: EVELINE CORRIGAN Room: [address] IN [facility].#: [id number] Admission: 01/26/18 Attend Phys: Kerri Tijerina DO Discharge: Date of : 49 Report #: [id number] THIS REPORT FOR: //name// CC: Kerri James OVERALL PLAN OF CARE: The patient is a 72-year-old female admitted to inpatient rehabilitation to facilitate safe discharge home, status post left frontal lobe cerebrovascular accident, diagnosed initially on 12/13/2017, reconfirmed on 01/16/2018 with residual right upper and lower extremity hemiparesis, aphasia, dysphagia. She does have PEG tube placement at this time. Previous level of function was modified independent to independent with activities of daily living prior to stroke. Current level of function is minimum assistance to dependent depending on therapy, activity and time of day. She does have moderate to severe impairment of comprehension, expression, social interaction, problem solving and memory. She also has multiple medical comorbidities requiring acute daily care. Estimated length of stay is 22-26 days with discharge disposition to the home setting with daughter and spouse who can provide supervision and assistance in their home. Medical prognosis is fair. Rehabilitation prognosis is fair. Physical Therapy will see the patient 60-90 minutes per day, 5 days per week, working on upper and lower body strength, balance, coordination, navigation. Occupational Therapy will work with the patient 60-90 minutes, 5 days per week, working on upper and lower body strength, balance, coordination, navigation, bathing, dressing and toileting. Speech and Language Pathology will work with the patient 60-90 minutes per day, 5 days per week, working on swallow function, expressive and receptive aphasia, memory and strategies for communication. This is an overall plan of care, may change from time to time, we will team weekly and make changes to plan of care as needed. <ELECTRONICALLY SIGNED> By: Kerri Tijerina DO 02/21/18 1521 1242 1941Kerri Tijerina DO /nt
--- NOTE | 2018-02-21 15:21 | H ---
[address] [address] HISTORY AND PHYSICAL Name: EVELINE CORRIGAN Room: [address] IN [facility].#: [id number] Admission: 01/26/18 Attend Phys: Kerri Tijerina DO Discharge: Date of : 49 Report #: [id number] THIS REPORT FOR: //name// CC: Kerri James HISTORY OF PRESENT ILLNESS: This is a 72-year-old female admitted to inpatient rehabilitation to facilitate safe discharge home, status post left frontal lobe hemorrhagic cerebrovascular accident, diagnosed in 11/2017 that resulted in right hemiparesis and expressive aphasia and dysphagia. She did require tube feedings at that time. She was discharged [facility] on 01/18 did show previous hemorrhage with decreased left cerebral hemisphere edema. She was followed by Cardiology, has continued aphasia and dysphagia. She has multiple medical comorbidities including diabetes with random glucose of 136, hypertension, COPD, anemia, labile blood pressures, history of left CVA with right hemiparesis, continued PEG tubes, expressive aphasia, stage 1 decubitus ulcer, diastolic congestive heart failure, morbid obesity and chronic kidney disease. ALLERGIES: No known drug allergies. MEDICATIONS: Reviewed, reconciled by myself and are available in the MAR. No significant changes since the preadmission screening. Prior to this stroke, she was modified independent to independent with activities of daily living. She is currently minimum assistance to dependent with physical and occupational therapies depending on therapy, activity and time of day. She does have moderate to severe impairment of comprehension, expression, social interaction, problem solving and memory. Her estimated length of stay is 24-26 days with discharge disposition to the home setting, where she does have a spouse and a daughter. She lives in a home. Family can provide supervision and assistance. PAST MEDICAL HISTORY: Unchanged from consult. PAST SURGICAL HISTORY: Unchanged from consult. REVIEW OF SYSTEMS: A 14-point review of systems is done and is difficult to obtain due to expressive aphasia, but appears to be negative including fever, chest pain, shortness of breath, abdominal pain and distention. PHYSICAL EXAMINATION: GENERAL: Alert, oriented, no apparent distress. VITAL SIGNS: Reviewed and are stable. HEENT: Head atraumatic, normocephalic. Pupils equal, round, reactive. ABDOMEN: Soft, nontender, obese. NEUROLOGIC: She does have some right facial droop, right [place] [address] HISTORY AND PHYSICAL Name: EVELINE CORRIGAN Room: [address] IN [facility]#: [id number] Admission: 01/26/18 Attend Phys: Kerri Tijerina DO Discharge: Date of : 49 Report #: [id number] extremity hemiparesis with 2-3/5 strength, 5/5 strength in left upper and lower extremities. SKIN: Warm and dry. LUNGS: Symmetric expansion. ASSESSMENT: 1. Left frontal lobe cerebrovascular accident. 2. Right hemiparesis, upper and lower extremity. 3. Expressive aphasia and dysphagia with need for percutaneous endoscopic gastrostomy tube placement. PLAN: 1. Admission to inpatient rehabilitation to facilitate safe discharge home. 2. PT, OT, speech, language, case management, nursing and HIMS to make evaluations and recommendations. 3. Plan of care is pending. We will team her weekly. 4. Anticipate family training and possible 18/04 supervision. <ELECTRONICALLY SIGNED> By: Kerri Tijerina DO 02/21/18 1521 1239 [id number] Tijerina DO /nt
[2018-02-21 20:00] VITALS: BP 135/52
[2018-02-22 08:30] VITALS: BP 132/51
[2018-02-22 20:00] VITALS: BP 111/46
[2018-02-23 05:11] LABS: CALCIUM 8.9 mg/dL (8.5-10.1); CREATININE 0.8 mg/dL (0.6-1.3); MAGNESIUM 1.9 mg/dL (1.8-2.4); POTASSIUM 3.5 mmol/L (3.5-5.1)
[2018-02-23 08:30] VITALS: BP 118/53
[2018-02-23 19:55] VITALS: BP 115/51
[2018-02-24 08:45] VITALS: BP 140/58
[2018-02-24 20:00] VITALS: BP 133/52
[2018-02-25 08:30] VITALS: BP 113/61
[2018-02-25 19:50] VITALS: BP 119/43
[2018-02-26 08:04] VITALS: BP 110/52
[2018-02-26 20:27] VITALS: BP 126/46
[2018-02-27 04:20] LABS: CALCIUM 9.1 mg/dL (8.5-10.1); CREATININE 0.9 mg/dL (0.6-1.3); POTASSIUM 3.1 mmol/L (3.5-5.1)
[2018-02-27 08:00] VITALS: BP 124/54
[2018-02-27 19:56] VITALS: BP 121/45
[2018-02-28 08:00] VITALS: BP 125/77
[2018-02-28 19:30] VITALS: BP 122/43
[2018-03-01 04:33] LABS: HEMATOCRIT 32.8 % (37.0-47.0); HEMOGLOBIN 10.6 gm/dL (12.0-15.0); MCH 26.9 pg (26.0-34.0); MCHC 32.2 g/dL (28.0-37.0); MCV 83.8 fL (80.0-100.0); MPV 10.2 fl. (7.2-11.1); RBC 3.92 mil/uL (4.20-5.00); RDW-CV 20.2 % (10.5-14.5); WBC 7.5 thou/uL (4.0-11.0)
[2018-03-01 04:51] LABS: CALCIUM 9.2 mg/dL (8.5-10.1); CREATININE 0.9 mg/dL (0.6-1.3); POTASSIUM 3.7 mmol/L (3.5-5.1)
[2018-03-01 08:00] VITALS: BP 135/60
[2018-03-01 20:18] VITALS: BP 127/52
[2018-03-02 10:03] VITALS: BP 134/53
[2018-03-02 20:30] VITALS: BP 129/52
[2018-03-03] MEDS ORDERED: PROVIGIL 200 M200 M1 PO (02:47)
[2018-03-03 02:49] VITALS: BP 129/52
[2018-03-03] MEDS ORDERED: CELEXA10 MG PO (02:59)
[2018-03-03] MEDS ORDERED: DIGOXIN125 MCG PO (03:03)
[2018-03-03] MEDS ORDERED: POTASSIUM20 PO (03:06)
[2018-03-03 08:10] VITALS: BP 122/55
[2018-03-03 08:17] VITALS: BP 122/55
[2018-03-03 10:25] VITALS: BP 129/52
[2018-03-03 10:42] VITALS: BP 129/52
--- NOTE | 2018-03-27 12:16 | D ---
[address] [address] DISCHARGE SUMMARY Name: MEENULUIS MLANDON Patel Room: [address] IN M.R.#: [id number] Admission: 01/26/18 Attend Phys: Kerri Tijerina DO Discharge: 03/03/18 Date of : 49 Report #: [id number] THIS REPORT FOR: //name// CC: Kerri Tijerina [facility] DISCHARGE DIAGNOSES: Cerebrovascular accident, aphasia, dysphagia. DISCHARGE DISPOSITION: To home with home health PT, OT, nursing and speech and language pathologist. Family training was completed by her . She will follow up with Neurology within 2-4 weeks, primary care physician within 1 week. She also needs to follow with her surgeon who placed her PEG tube at . MEDICATIONS: Reviewed and reconciled by myself and are available in the [facility]. She did progress well in her therapies. DISCHARGE PHYSICAL EXAMINATION: GENERAL: Alert, oriented, no apparent distress. VITAL SIGNS: Reviewed and are stable. HEENT: Head atraumatic, normocephalic. Pupils equal, round, reactive. ABDOMEN: Soft, nontender, nondistended. NEUROLOGIC: Ongoing right upper and lower extremity hemiparesis, but improved; with some aphasia, but significantly improved communication. <ELECTRONICALLY SIGNED> By: Kerri Tijerina DO 03/27/18 1216 1435 [id number] Kristen Tijerina DO /nt
== END 2018-03-03 12:42 | disposition home health service (06) | DRG 64 ==
LOC: M.REH 12:48
PROVIDERS: Internal Medicine; ADMIT Physical Medicine & Rehabilitation
DX: I62.9 Nontraumatic intracranial hemorrhage, unspecified (principal); J18.9 Pneumonia, unspecified organism; G81.91 Hemiplegia, unspecified affecting right dominant side; I50.30 Unspecified diastolic (congestive) heart failure; I13.0 Hypertensive heart and chronic kidney disease with heart failure and stage 1 through stage 4 chronic kidney disease, or unspecified chronic kidney disease; N39.0 Urinary tract infection, site not specified; R47.01 Aphasia; R13.10 Dysphagia, unspecified; J44.9 Chronic obstructive pulmonary disease, unspecified; D64.9 Anemia, unspecified; E66.01 Morbid (severe) obesity due to excess calories; N18.9 Chronic kidney disease, unspecified; E11.22 Type 2 diabetes mellitus with diabetic chronic kidney disease; L89.891 Pressure ulcer of other site, stage 1; I48.91 Unspecified atrial fibrillation; F32.9 Major depressive disorder, single episode, unspecified; Z68.39 Body mass index [BMI] 39.0-39.9, adult; Z93.1 Gastrostomy status; Z79.82 Long term (current) use of aspirin; Z79.899 Other long term (current) drug therapy

== ENCOUNTER 2018-03-27 20:02 | Emergency (ER) | payer OTHER ==
[~2018-03-27] VITALS: Ht 177.8 cm; Wt 127.9 kg
[~2018-03-27 20:02] MED LIST changes: +CELEXA10 MG PO; +DIGOXIN125 MCG PO; +POTASSIUM20 PO; +PROVIGIL 200 M200 M1 PO
[2018-03-27 20:35] LABS: ABSOLUTE EOSINOPHILS 0.2 thou/uL (0.0-0.7); ABSOLUTE LYMPHOCYTES 1.1 thou/uL (0.8-5.3); ABSOLUTE MONOCYTES 0.6 thou/uL (0.0-1.2); ABSOLUTE NEUTROPHILS 4.6 thou/uL (1.6-8.1); BASOPHILS 0.7 %; EOSINOPHILS 2.7 %; HEMATOCRIT 34.2 % (37.0-47.0); HEMOGLOBIN 10.8 gm/dL (12.0-15.0); LYMPHOCYTES 17.3 %; MCH 26.9 pg (26.0-34.0); MCHC 31.7 g/dL (28.0-37.0); MCV 84.9 fL (80.0-100.0); MONOCYTES 9.5 %; MPV 10.3 fl. (7.2-11.1); NUCLEATED RBCS 0 /100WBC; PLATELET COUNT* 160 thou/uL (150-400); POLYS 69.8 %; RBC 4.03 mil/uL (4.20-5.00); RDW-CV 19.4 % (10.5-14.5); WBC 6.5 thou/uL (4.0-11.0)
[2018-03-27 20:43] LABS: CALCIUM 10.1 mg/dL (8.5-10.1); POTASSIUM 3.7 mmol/L (3.5-5.1)
[2018-03-27 21:10] VITALS: BP 150/73
== END 2018-03-27 21:16 | disposition home or self-care (01) ==
LOC: M.ERS 20:02
PROVIDERS: Emergency Medicine
DX: R04.0 Epistaxis (principal); I10 Essential (primary) hypertension; E03.9 Hypothyroidism, unspecified; J44.9 Chronic obstructive pulmonary disease, unspecified

== ENCOUNTER 2018-04-10 13:59 | Inpatient (IN) | payer OTHER ==
[~2018-04-10] VITALS: Ht 170.2 cm; Wt 126.6 kg
[2018-04-10 14:01] VITALS: BP 130/70
[2018-04-10 14:22] LABS: ABSOLUTE EOSINOPHILS 0.1 thou/uL (0.0-0.7); ABSOLUTE LYMPHOCYTES 1.4 thou/uL (0.8-5.3); ABSOLUTE MONOCYTES 0.7 thou/uL (0.0-1.2); ABSOLUTE NEUTROPHILS 5.8 thou/uL (1.6-8.1); BASOPHILS 0.4 %; EOSINOPHILS 1.3 %; HEMATOCRIT 31.8 % (37.0-47.0); HEMOGLOBIN 10.1 gm/dL (12.0-15.0); LYMPHOCYTES 17.4 %; MCH 26.6 pg (26.0-34.0); MCHC 31.8 g/dL (28.0-37.0); MCV 83.7 fL (80.0-100.0); MONOCYTES 8.7 %; MPV 10.1 fl. (7.2-11.1); NUCLEATED RBCS 0 /100WBC; PLATELET COUNT* 171 thou/uL (150-400); POLYS 72.2 %; RDW-CV 18.5 % (10.5-14.5)
[2018-04-10 14:30] LABS: ANION GAP 6 mmol/L (7-16); BUN 9 mg/dL (7-18); CALCIUM 9.5 mg/dL (8.5-10.1); CHLORIDE 106 mmol/L (98-107); CO2 29 mmol/L (21-32); CREATININE 1.1 mg/dL (0.6-1.3); GLUCOSE 96 mg/dL (70-99); POTASSIUM 3.8 mmol/L (3.5-5.1); SODIUM 141 mmol/L (136-145)
[2018-04-10 14:41] LABS: ALKALINE PHOSPHATASE 83 U/L (46-116); LIPASE 72 U/L (73-393); MAGNESIUM 1.8 mg/dL (1.8-2.4); NT-PRO BRAIN NAT PEPTIDE 5220 pg/mL (<300); SGOT 16 U/L (15-37); SGPT 18 U/L (30-65); TOTAL BILIRUBIN 2.6 mg/dL (<0.1-1.0); TOTAL PROTEIN 7.3 g/dL (6.4-8.2); TROPONIN-I LEVEL <0.06 ng/mL (<0.06)
--- NOTE | 2018-04-10 15:33 | EKG ---
[place] [address] ELECTROCARDIOGRAM REPORT Name: JAVIERKAURLUIS M ARIZALANDON Jorge Room: [facility]#: [id number] Admission: 04/10/18 Attend Phys: Discharge: Date of : 49 Report #: [id number] THIS REPORT FOR: //name// [facility] ED Test Date: 2018-04-10 Test Time: 14:01:50 Pat Name: EVELINE CORRIGAN Department: Room: Gender: F Dock Superintendent: Enio MALLORY : 1945 Requested By: Georges Flynn Order Number: [id number] MD: Hammad Ivey Measurements Intervals [place] Rate: 99 P: RI: QRS: 2 QRSD: 108 T: -55 QT: 290 QTc: 373 Interpretive Statements Atrial fibrillation Low voltage, precordial leads Nonspecific repol abnormality, diffuse leads wandering baseline Compared to ECG 01/16/2018 20:14:40 rate slowed Electronically Signed On 04-10-2018 15:32:50 CDT by Hammad Ivey [email or web address] <ELECTRONICALLY SIGNED> By: Hammad Ivey MD, [facility] 04/10/18 1532 1401 1401 Hammad Ivey MD, [facility] /EPI
[2018-04-10 17:50] VITALS: BP 132/58
[2018-04-10 18:15] VITALS: BP 130/65
--- NOTE | 2018-04-10 18:55 | NUR ---
RECIEVED REPORT FROM DIANNA, RN IN ER OF EXPECTED TRANSFER AT 1732- DX: CHEST PAIN,PNEUMONIA- PT ARRIVED TO ROOM 201 VIA CART WITH ASSISTANCE X3 VIA SLIDE TO BED- NANOFABRICATION SPECIALIST PLACED ORDERED, TRACING A-FIB/RATE CONTROLLED- PT A&O X1 WITH NOTED APHASIA- RIGHT SIDED HEMIPARESIS NOTED R/T RECENT STROKE NOTED- CONTINENT OF BOWEL AND BLADDER WITH OCCASSIONAL STRESS INCONTINENTS REPORTED- ASSIST X1-2 WITH RW REPORTED- LIVES AT HOME WITH WHOM TAKES CARE OF PT-BILATERAL WHEEZING NOTED, REPORTED PRODUCTIVE COUGH- VS 98.2 20 130/65 100 97% ON BIPAP ORDERED- ABDOMEN SOFT/ROUND/OBESE, BS X4 QUADS- PT RESPORTS LAST BM THIS AM- +1 BLE EDEAM NOTED WITH SUPPORT STOCKINGS IN PLACE NOTED- IV NOTED TO LEFT FA INTACT AND SL-PT DENIES ANY C/O PAIN AT TIME OF [id number] MOST TIME, BUT ABLE TO SHAKE HEAD YES AND NO TO QUESTIONING-SKIN C/D/I-CALL LIGHT AND PERSONAL BELONGINGS WITH IN PLACE- HOURLY ROUNDS IN PLACE R/T SAFETY/NEEDS- ALL NEEDS MET AT THIS TIME-WCTM
[2018-04-10 19:44] LABS: URINE BILIRUBIN NEGATIVE (Negative); URINE BLOOD NEGATIVE (Negative); URINE CLARITY CLEAR; URINE COLOR STRAW; URINE GLUCOSE-RANDOM NEGATIVE (Negative); URINE KETONES NEGATIVE (Negative); URINE LEUKOCYTES NEGATIVE (Negative); URINE NITRITE NEGATIVE (Negative); URINE PROTEIN NEGATIVE (Negative); URINE SPECIFIC GRAVITY <= 1.005 (1.005-1.030); URINE UROBILINOGEN 0.2 E.U./dl (0.2-1.0)
[2018-04-10 20:00] VITALS: BP 130/56
[2018-04-11] VITALS: BP 140/75
--- NOTE | 2018-04-11 01:35 | NUR ---
PT ALERT ORIENTED. EXPRESIVE APHASIA. NODS YES/NO. NEARLY FLACID ON RIGHT WITH ONLY SLIGHT GROSS MOTOR MOVEMENT. TURN Q 2 HRS. TELEMETRY SHOWS AFIB. ON BIPAP. WILL CONTINUE TO MONITOR.
[2018-04-11 04:00] VITALS: BP 143/67
[2018-04-11 05:03] LABS: HEMATOCRIT 30.9 % (37.0-47.0); HEMOGLOBIN 9.7 gm/dL (12.0-15.0); MCH 26.6 pg (26.0-34.0); MCHC 31.4 g/dL (28.0-37.0); MCV 84.5 fL (80.0-100.0); MPV 10.7 fl. (7.2-11.1); RBC 3.66 mil/uL (4.20-5.00); RDW-CV 18.8 % (10.5-14.5); WBC 8.4 thou/uL (4.0-11.0)
[2018-04-11 05:41] LABS: ALBUMIN 2.7 g/dL (3.4-5.0); CREATININE 1.2 mg/dL (0.6-1.3); MAGNESIUM 1.7 mg/dL (1.8-2.4); POTASSIUM 3.8 mmol/L (3.5-5.1); TOTAL BILIRUBIN 3.2 mg/dL (<0.1-1.0); TOTAL PROTEIN 6.7 g/dL (6.4-8.2)
[2018-04-11 07:51] VITALS: BP 146/78
--- NOTE | 2018-04-11 08:59 | NUR ---
ASSUMED CARE OF PT THIS AM AROUND 0715- CURATOR OF MANUSCRIPTS IN PLACE ORDERED, TRACING A-FIB/RATE CONTROLED- UPON ASSESSMENT PT NOTED TO BE RESTING IN BED, ON 5L VIA NC- A&O X2-3, APHASIC BUT CAN COMMUNICATE BY SHAKING HEAD YES AND VMWARE ADMINISTRATOR-A X1-2 WITH TRANSFERS USING RW, RIGHT SIDE HEMIPARESIS NOTED-CONTINENT VS INCONTINET OF BOWEL AND BLADDER- LABORED BREATHING NOTED WITH O2 SAT NOTED TO BE IN MID 80'S AT TIME OF ASSESSMENT,LOW GRADE FEVER OF 99.2 NOTED THIS AM- PT PLACED ON BIPAP INDICATED WITH NOTED IMPROVMENT IN O2 SAT TO 92%- SEPSIS SCREAN POSITIVE THIS AM WITH NOTIFED- ORDERS RECIEVED FOR LACTIC ACID AND US OF ABD TO EVAL FOR POSS CHOLECYSTITIS- LACTIC RESULTED AT 1.2 THIS AM- ABDOMEN SOFT/OBESE/NON-TENDER, BS X4 QUADS- CLEAR LIQUID DIET IN PLACE ORDERED- PT UP TO RECLINER THIS AM, TOLERATING WELL- DAUGHTER AT SIDE VISITING-IV NOTED TO LEFT FA INTACT, IV ABT INFUSSING PRESCIBED- PT DENIES ANY C/O PAIN/DISCOMFORT AT THIS TIME- CALL LIGHT AND PERSONAL BELONGINGS WITH IN REACH- HOURLY ROUNDS IN PLACE R/T SAFETY/NEEDS- ALL NEEDS MET AT THIS TIME-WCTM
--- NOTE | 2018-04-11 10:16 | NUR ---
I have reviewed the documentation by SHAHLA ARAYA from TODAY to 04/11/18 and I concur with it. RADHA LUIS
--- NOTE | 2018-04-11 11:30 | NUR ---
Pt known to this CM from previous hospital stay. Pt dc from acute rehab on 03/03/18 to home with Fany . Pt resides at home with her and grandson. Supportive family that is involved in POC. Pt has a RW and wc at home that she can use as needed. Hx of skilled at [facility]. Goal is to return home at dc. Following.
[2018-04-11 12:19] VITALS: BP 139/69
--- NOTE | 2018-04-11 13:29 | NUR ---
Nutrition: Consult received for "wt loss, decreased appetite." Pt in radiology at time of visit. Spoke with . He stated pt usually weighs around 275# or so. Per [employer], wt has fluctuated 260-280#. denied any poor appetite, stating pt eats well. Diet advanced to Regular now. RX, labs, PMHx noted. Pt was admitted with PNA. No nutrition concerns at this time. Low risk.
[2018-04-11 16:22] VITALS: BP 150/80
--- NOTE | 2018-04-11 16:40 | NUR ---
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
[2018-04-11 20:00] VITALS: BP 133/66; BP 133/68
[2018-04-12] VITALS: BP 130/62
--- NOTE | 2018-04-12 01:41 | NUR ---
PT ALERT WITH EXPRESIVE APASIA. ANSWERS YES/NO QUESTIONS. PT BECOMES SOMEWHAT FRUSTRATED WHEN TRYING TO COMMUNICATE. WEARING BIPAP 11/05, RATE 12, FIO2 AT 30% NC TO BE AT 3 LITERS NC WHEN NOT ON BIPAP. TELEMETRY SHOWS AFIB. INCONTENENT AT TIMES. AT BEDSIDE. VANC TROUGH TODAY 04/12 AT 1830. WILL CONTINUE TO MONITOR.
[2018-04-12 03:48] VITALS: BP 117/73
[2018-04-12 04:32] LABS: HEMOGLOBIN 9.1 gm/dL (12.0-15.0); MCH 26.5 pg (26.0-34.0); MCHC 31.4 g/dL (28.0-37.0); MCV 84.4 fL (80.0-100.0); MPV 10.9 fl. (7.2-11.1); NUCLEATED RBCS 0 /100WBC; PLATELET COUNT* 147 thou/uL (150-400); RBC 3.43 mil/uL (4.20-5.00); RDW-CV 18.4 % (10.5-14.5); WBC 8.8 thou/uL (4.0-11.0)
[2018-04-12 04:54] LABS: CALCIUM 9.5 mg/dL (8.5-10.1); CREATININE 1.2 mg/dL (0.6-1.3); MAGNESIUM 2.1 mg/dL (1.8-2.4); POTASSIUM 3.6 mmol/L (3.5-5.1)
[2018-04-12 06:03] LABS: ABSOLUTE LYMPHOCYTES 0.9 thou/uL (0.8-5.3); ABSOLUTE MONOCYTES 0.2 thou/uL (0.0-1.2); ABSOLUTE NEUTROPHILS 7.7 thou/uL (1.6-8.1)
[2018-04-12 06:04] LABS: ANISOCYTOSIS 1+; PLATELET ESTIMATE DECREASED; POIKILOCYTOSIS 1+; POLYCHROMASIA 1+
[2018-04-12 07:47] VITALS: BP 130/64
--- NOTE | 2018-04-12 08:00 | NUR ---
RECEIVED REPORT. ASSUMED CARE OF PT AT 0730. VSS. CARDIAC MONITORING IN PLACE AFIB. AM ASSESSMENT AND VITALS COMPLETED CHARTED. PT ALERT AND ORIENTED. PT HAS EXPRESSIVE APHASIA FROM HX OF CVA AND RIGHT SIDED WEAKNESS. PT IS UP IN CHAIR. PT INCONTINENT OF URINE X5 THIS AM. IV SALINE LOCKED. PT DENIES ANY COMPLAITNS OF PAIN OR DISCOMFORT THIS AM. PT AND DAUGHTER INFORMED OF PLAN OF CARE. CALL LIGHT IS WITHIN REACH. WILL CONTINUE TO MONTIOR FOR DURAION OF SHIFT.
[2018-04-12 12:06] VITALS: BP 124/67
--- NOTE | 2018-04-12 13:29 | NUR ---
MET W/PT & HER TO DISCUSS HEART FAILURE MEDICATION. DISCUSSION FOCUSED PRIMARILY ON DIGOXIN & FUROSEMIDE. PT HAS DOCUMENTED APHASIA BUT COMMUNICATED VIA HEAD NODS & SHAKES. REVIEWED RATIONALE OF USE FOR DIGOXIN AND FUROSEMIDE AND EMPHASIZED IMPORTANCE OF COMPLIANCE WITH PRESCRIBED REGIMEN. WE DISCUSSED DRUG SIDE EFFECTS AND RISKS TO BE AWARE OF. PT'S EXPRESSED UNDERSTANDING OF SUBJECTS REVIEWED. LEFT MEDICATION SHEET WITH PATIENT WELL PHARMACY CONTACT [employer] FOR ANY FURTHER QUESTIONS OR ISSUES. THANK YOU.
[2018-04-12 16:12] VITALS: BP 145/67
--- NOTE | 2018-04-12 16:46 | NUR ---
VSS. CARDIAC MONTORING IN PLACE WITH NO CHANGES THIS SHIFT. PT PROGRESSING TOWARDS GOALS. PT REMAINS ON 3L PER NC. NEW IV STARTED TO LEFT FA. PT HAD SOME CRAMPING IN LE. RECHECKING POTASSIUM LEVEL. PT UP IN CHAIR THIS AFTERNOON. QUINTANILLA PLACED FOR CRITICAL I AND O. PT IS UP WITH ASSITANCE X2 AND GAIT BELT. PT'S FAMILY AT BEDSIDE. CALL LIGHT IS WITHIN REACH. WILL CONTINUE TO MONITOR FOR DURATION OF SHIFT.
[2018-04-13] VITALS (8 sets, daily range): BP systolic 111–144; BP diastolic 56–83
--- NOTE | 2018-04-13 03:37 | NUR ---
ASSUMED PT CARE AT 1915 REPORT RECEIVED FORM NURSE. PT IS ALERT AWAKE ORIENTED X4. NO COMPLAIN OF PAIN ON 3 L NC SATURATION IS 97% FAMILY MEMBERS AT BEDSIDE. MEDIACTIO ADMINSTERED ORDERED. PT IS ON A 2000CC FLUID RESTRICTION DIET. QUINTANILLA IS INTACT. IV ANITBIOTICS ADM PRESCRIBED. PT IS SLEEPINGA THIS MOMENT. A FIB ON MULTI NEEDLE MACHINE OPERATOR. BIPAP OS ON. Q2 TURN PERFORMED. PROMOTION OF SLEEP BY KEEPING THE ROOM QUIET AND SPACING OUT ACTIVITIES. WILL CONTINUE TO MONITOR
[2018-04-13 04:41] LABS: CALCIUM 9.6 mg/dL (8.5-10.1); CREATININE 1.2 mg/dL (0.6-1.3); MAGNESIUM 2.3 mg/dL (1.8-2.4); POTASSIUM 4.1 mmol/L (3.5-5.1)
--- NOTE | 2018-04-13 17:01 | NUR ---
ASSUMED PT CARE AT 0700 PT IS ALERT AND ORIENTED X 4 PT DENIES PAIN OR SOA ON OXYGEN, PT IS UP WITH ASSIST X 2 PT IS A FALL RISK CHAIR ALARM IS ON, PT IS AFIB ON THE MONITOR, PT HAVING DIFFICULTY HAVING BOWEL MOVEMENT GAVE BISACODYL PT STILL UNABLE TO HAVE BM PAGED PHYSICIAN OBTAINED ORDER FOR MIRALAX, PT IS DIFFICULT TO UNDERSTAND BROUGHT IN HOME CPAP, PT HAS QUINTANILLA WILL CONTINUE TO MONITOR
[2018-04-14 04:00] VITALS: BP 121/69
[2018-04-14 04:35] LABS: CALCIUM 9.8 mg/dL (8.5-10.1); CREATININE 1.3 mg/dL (0.6-1.3); MAGNESIUM 2.2 mg/dL (1.8-2.4); POTASSIUM 3.6 mmol/L (3.5-5.1)
--- NOTE | 2018-04-14 05:24 | NUR ---
PT AAOX4. PT DENIES KPAIN OR SOB. PT REFUSED TO WEAR BIPAP OR HOME CPAP THIS EVENING, O2 3 L BNC INTACT AND SATS MAINTAINED. NO ACUTE DISTRESS NOTED. VSS. TELEMETRY PACK INTACT. PT IS HOPING OT GO HOME TODAY. NO ACUTE CHANGES DURING SHIFT. WILL CONTINUE TO MONITOR
[2018-04-14] MEDS ORDERED: LASIX 40 MG TAB40 M1 PO (08:46)
[2018-04-14] MEDS ORDERED: PREDNISONE 10 M10 MG PO (08:46)
[2018-04-14] MEDS ORDERED: LEVAQUIN 750 M750 MG PO (08:46)
[2018-04-14] MEDS ORDERED: MUCINEX600 MG PO (08:46)
[2018-04-14] MEDS ORDERED: IPRAT-ALBUT 0.5-3 ML INH (08:46)
[2018-04-14 09:00] VITALS: BP 129/61
--- NOTE | 2018-04-14 09:43 | NUR ---
Received order from physician to arrange home health. Called [facility] and faxed orders. No other needs identified.
--- NOTE | 2018-04-14 10:22 | NUR ---
ASSUMED PT CARE AT 0700 PT IS ALERT AND ORIENTED X 4 PT HAS DSYPASIA AND HAS DIFFICULTY COMMUNICATING, PT DENIES PAIN OR SOA ON 3L/NC, PT IS UP WITH ASSIST X 2 PT HAS RIGHT SIDE WEAKNESS THIS IS PT BASELINE, PT IS AFIB ON THE MONITOR, PT IS CLEARED FOR DISCHARGE PHYSICIAN ORDERED FOR RESPIRTORY TO WALK PT TO QUALIFY FOR HOME OXYGEN, WILL CONTINUE TO MONITOR
[2018-04-14 12:00] VITALS: BP 139/68
== END 2018-04-14 13:45 | disposition home health service (06) | DRG 871 ==
LOC: M.ERS 13:59 → M.TBA-ER 16:27 → M.2W 16:27
PROVIDERS: Emergency Medicine Emergency Medical Services; ADMIT Internal Medicine
PROC: 5A09457 Assistance with Respiratory Ventilation, 24-96 Consecutive Hours, Continuous Positive Airway Pressure (ICD-10-PCS; principal; 2018-04-10)
DX: A41.9 Sepsis, unspecified organism (principal); J69.0 Pneumonitis due to inhalation of food and vomit; J96.01 Acute respiratory failure with hypoxia; I50.31 Acute diastolic (congestive) heart failure; I69.351 Hemiplegia and hemiparesis following cerebral infarction affecting right dominant side; E44.0 Moderate protein-calorie malnutrition; Z68.41 Body mass index [BMI] 40.0-44.9, adult; E03.9 Hypothyroidism, unspecified; J44.9 Chronic obstructive pulmonary disease, unspecified; E66.9 Obesity, unspecified; I25.119 Atherosclerotic heart disease of native coronary artery with unspecified angina pectoris; I48.2 Chronic atrial fibrillation; Z93.1 Gastrostomy status; Z79.01 Long term (current) use of anticoagulants; Z79.2 Long term (current) use of antibiotics; Z79.82 Long term (current) use of aspirin; Z79.899 Other long term (current) drug therapy